=== PATIENT | female | born 1935 | race Caucasian/White ===

== ENCOUNTER → 2017-01-30 | Outpatient (REF) | payer MEDICARE ==
[~2017-01-30] MED LIST: CARV12.5 OR; KEFL500C PO; LASI40TA OR; VIT D 2000 PO; WARFPOW3 PO
[2017-01-30 17:59] LABS: ALBUMIN 3.6 GM/DL (3.2-5.2); ALKALINE PHOSPHATASE 118 U/L (45-117); ALT/SGPT 13 U/L (12-78); ANION GAP 7 MEQ/L (8-16); AST/SGOT 17 U/L (15-37); BILIRUBIN,TOTAL 0.6 MG/DL (0.2-1.0); BLOOD UREA NITROGEN 14 MG/DL (7-18); CALCIUM LEVEL 9.1 MG/DL (8.8-10.2); CARBON DIOXIDE LEVEL 32 MEQ/L (21-32); CHLORIDE LEVEL 101 MEQ/L (98-107); CHOLESTEROL LEVEL 195 MG/DL (<200); CREATININE FOR GFR 0.92 MG/DL (0.55-1.02); GLOMERULAR FILTRATION RATE > 60.0 (>39); GLUCOSE, FASTING 96 MG/DL (83-110); SODIUM LEVEL 140 MEQ/L (136-145); TOTAL PROTEIN 7.6 GM/DL (6.4-8.2); TRIGLYCERIDES LEVEL 81 MG/DL (<150)
[2017-01-30 18:38] LABS: MEAN CORPUSCULAR HEMOGLOBIN 29.7 pg (27.0-33.0); MEAN CORPUSCULAR HGB CONC 33.7 g/dl (32.0-36.5); MEAN CORPUSCULAR VOLUME 87.9 fl (80.0-96.0); RED CELL DISTRIBUTION WIDTH 12.8 % (11.5-14.5); WHITE BLOOD COUNT 5.5 K/mm3 (4.0-10.0)
== END ==
LOC: M SFHCPLAZ 15:54
PROVIDERS: ATTEND Nurse Practitioner Family
DX: I10 Essential (primary) hypertension (principal); E88.81 Metabolic syndrome and other insulin resistance; E78.2 Mixed hyperlipidemia; Z79.02 Long term (current) use of antithrombotics/antiplatelets; Z79.899 Other long term (current) drug therapy

== ENCOUNTER → 2017-04-30 | Day surgery (SDC) | payer MEDICARE ==
[~2017-04-30] VITALS: Ht 160 cm; Wt 125.2 kg
[~2017-04-30] MED LIST changes: +ACETYLCHOLINE OPHTH SOLN 1% 2ML (MIOCHOL-E) As Ordered ONE; +BISO10TA6 PO; +BSS with VANC/TOB/EPI for EYE CASES IR ONE; +CARV12.5 PO; +CEFUROXIME 1MG/0.1ML INTRACAMERAL INJ As Ordered ONE; +CYCLOPENTOLATE 2% OPHTH SOLN 2ML BTL OS ONE; +DOK100TA PO; +FURO40TA2 PO; +HEALON DUET (HEALON 10MG/ML 0.55ML & HEALON ENDOCOAT 30MG/ML 0.85ML) As Ordered ONE; +LIDOCAINE 1% SDV 5 ML VIAL As Ordered ONE; +LIDOCAINE 4% INJ 5 ML AMP OU ONE; +LR 500 ML IV ONE; +MIDAZOLAM INJ 2 MG/2 ML VIAL (J2250) As Ordered ONE; +MOXIFLOXACIN IN BSS 0.25MG/0.25ML INTRACAMERAL INJ (OR EYE ONLY)(J2280) As Ordered ONE; +MULT1CHW39 PO; +OFLOXACIN 0.3 % (OCUFLOX) OPTH SOL 5ML OS ONE; +PHENYLEPHRINE 2.5% OPHTH SOL 2ML OS ONE; +POVIDONE-IODINE 5% OPHTH PREP SOL 30ML As Ordered ONE; +TRIAMCINOLONE PRES FR 40 MG/ML 1ML(TRIESENCE)(OR EYE ONLY)(J3300 PER 1MG) As Ordered ONE; +TROPICAMIDE 1% OPHTH SOLN 2ML OS ONE; +XARE20TA PO; +fentaNYL 100 MCG/2 ML INJECTION (J3010) As Ordered ONE
[2017-04-30 12:50] VITALS: BP 188/90
--- NOTE | 2017-04-30 13:27 | RO ---
DATE OF PROCEDURE: 04/30/2017 PREPROCEDURE DIAGNOSIS: Dense 3-4+ cataract left eye. POSTPROCEDURE DIAGNOSIS: Dense 3-4+ cataract left eye. PROCEDURE: Phacoemulsification with intraocular lens implantation of [id number] plus 22 diopter. 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 DESCRIPTION OF PROCEDURE: The patient was brought to the operating room, very nervous. Patient could not horizontal. Eventually we had her in the Trendelenburg position. The left eye was prepped and draped. A lid speculum placed, Side port incision was made and EndoCoat was injected into the anterior chamber. Temporal clear corneal incision was made with a 2.5 mm Keratome followed by capsulorrhexis which was very difficult secondary to the dense nucleus. However, it was finished without any complications. Hydrodissection was done and then phacoemulsification was done under dense settings and the nucleus was divided. Half of the nucleus was phacoemulsified when the patient suddenly moved and a rent was noted in the posterior capsule. It was difficult to recover the remaining quadrant which drifted into the posterior pole. At that point, [id number] power 22 diopter was placed in the sulcus without any problems. Miochol was injected and a suture was applied. Case was discussed in great detail with the patient that she needs a retina specialists involvement to retrieve the remaining fibers of the lens. At the end of the case, sub-tenon Kenalog was given and cefuroxime was given intracamerally. Case was discussed in great detail with the patient.
== END | disposition home or self-care (01) ==
LOC: M SDC 10:54
PROVIDERS: ATTEND Ophthalmology
DX: H26.9 Unspecified cataract (principal); H59.022 Cataract (lens) fragments in eye following cataract surgery, left eye; I10 Essential (primary) hypertension; R60.0 Localized edema; R29.898 Other symptoms and signs involving the musculoskeletal system; M12.9 Arthropathy, unspecified; R06.09 Other forms of dyspnea; D68.62 Lupus anticoagulant syndrome; D66 Hereditary factor VIII deficiency; Z88.0 Allergy status to penicillin; Z79.899 Other long term (current) drug therapy; Z78.0 Asymptomatic menopausal state; Z86.711 Personal history of pulmonary embolism
CPT/HCPCS: 66984; J2250; J2280; J3010; J3300; V2632

== ENCOUNTER → 2017-05-13 | Outpatient (REF) | payer MEDICARE ==
[~2017-05-13] MED LIST changes: -ACETYLCHOLINE OPHTH SOLN 1% 2ML (MIOCHOL-E) As Ordered ONE; -BSS with VANC/TOB/EPI for EYE CASES IR ONE; -CEFUROXIME 1MG/0.1ML INTRACAMERAL INJ As Ordered ONE; -CYCLOPENTOLATE 2% OPHTH SOLN 2ML BTL OS ONE; -HEALON DUET (HEALON 10MG/ML 0.55ML & HEALON ENDOCOAT 30MG/ML 0.85ML) As Ordered ONE; -LIDOCAINE 1% SDV 5 ML VIAL As Ordered ONE; -LIDOCAINE 4% INJ 5 ML AMP OU ONE; -LR 500 ML IV ONE; -MIDAZOLAM INJ 2 MG/2 ML VIAL (J2250) As Ordered ONE; -MOXIFLOXACIN IN BSS 0.25MG/0.25ML INTRACAMERAL INJ (OR EYE ONLY)(J2280) As Ordered ONE; -OFLOXACIN 0.3 % (OCUFLOX) OPTH SOL 5ML OS ONE; -PHENYLEPHRINE 2.5% OPHTH SOL 2ML OS ONE; -POVIDONE-IODINE 5% OPHTH PREP SOL 30ML As Ordered ONE; -TRIAMCINOLONE PRES FR 40 MG/ML 1ML(TRIESENCE)(OR EYE ONLY)(J3300 PER 1MG) As Ordered ONE; -TROPICAMIDE 1% OPHTH SOLN 2ML OS ONE; -fentaNYL 100 MCG/2 ML INJECTION (J3010) As Ordered ONE
[2017-05-13 15:33] LABS: CALCIUM LEVEL 9.4 MG/DL (8.8-10.2); CREATININE FOR GFR 1.21 MG/DL (0.55-1.02); GLOMERULAR FILTRATION RATE 45.7 (>39); POTASSIUM SERUM 3.9 MEQ/L (3.5-5.1)
== END ==
LOC: M SFHCPLAZ 12:21
PROVIDERS: ATTEND Family Medicine
DX: Z01.818 Encounter for other preprocedural examination (principal); H59.022 Cataract (lens) fragments in eye following cataract surgery, left eye; I10 Essential (primary) hypertension

== ENCOUNTER → 2017-05-19 | Outpatient (REF) | payer MEDICARE ==
[2017-05-19 18:04] LABS: CALCIUM LEVEL 9.3 MG/DL (8.8-10.2); CREATININE FOR GFR 0.98 MG/DL (0.55-1.02); GLOMERULAR FILTRATION RATE 58.3 (>39); POTASSIUM SERUM 3.6 MEQ/L (3.5-5.1)
[2017-05-19 18:11] LABS: FOLLICLE STIMULATING HORMONE 55.4 mIU/mL; LUTEINIZING HORMONE 19.4 mIU/mL
[2017-05-19 18:13] LABS: INR 1.07
[2017-05-19 19:53] LABS: MEAN CORPUSCULAR HEMOGLOBIN 29.1 pg (27.0-33.0); MEAN CORPUSCULAR HGB CONC 33.4 g/dl (32.0-36.5); MEAN CORPUSCULAR VOLUME 87.1 fl (80.0-96.0); RED CELL DISTRIBUTION WIDTH 14.1 % (11.5-14.5); WHITE BLOOD COUNT 5.4 K/mm3 (4.0-10.0)
== END ==
LOC: M SFHCPLAZ 13:51
PROVIDERS: ATTEND Physician Assistant
DX: N93.9 Abnormal uterine and vaginal bleeding, unspecified (principal); Z51.81 Encounter for therapeutic drug level monitoring; Z79.01 Long term (current) use of anticoagulants; Z78.0 Asymptomatic menopausal state
CPT/HCPCS: 80048; 83001; 83002; 85027; 85610; 85730; G0463

== ENCOUNTER 2017-08-20 07:58 | Day surgery (SDC) | payer MEDICARE ==
[~2017-08-20] VITALS: Ht 162.6 cm; Wt 112.4 kg
[~2017-08-20 07:58] MED LIST changes: +ACETAMINOPHEN 325 MG TAB PO PRN; +BSS with VANC/TOB/EPI for EYE CASES IR ONE; +CYCLOPENTOLATE 2% OPHTH SOLN 2ML BTL OD ONE; +LIDOCAINE 3.5 % 1ML OPHTH TOPICAL GEL OU ONE; +MIDAZOLAM INJ 2 MG/2 ML VIAL (J2250) As Ordered ONE; +OFLOXACIN 0.3 % (OCUFLOX) OPTH SOL 5ML OD ONE; +PHENYLEPHRINE 2.5% OPHTH SOL 2ML OD ONE; +PROPARACAINE 0.5% OPHTH SOL 15ML OD PRN; +TROPICAMIDE 1% OPHTH SOLN 2ML OD ONE; +fentaNYL 100 MCG/2 ML INJECTION (J3010) As Ordered ONE
[2017-08-20] MEDS ORDERED: CYCLOPENTOLATE 2% OPHTH SOLN 2ML BTL As Ordered ONE (08:07)
[2017-08-20] MEDS ORDERED: PHENYLEPHRINE 2.5% OPHTH SOL 2ML As Ordered ONE (08:07)
[2017-08-20] MEDS ORDERED: OFLOXACIN 0.3 % (OCUFLOX) OPTH SOL 5ML As Ordered ONE (08:07)
[2017-08-20] MEDS ORDERED: TROPICAMIDE 1% OPHTH SOLN 2ML As Ordered ONE (08:07)
[2017-08-20] MEDS ORDERED: D5W/0.2% SODIUM CHLORIDE 250 ML IV ONE (08:15)
[2017-08-20] MEDS ORDERED: POVIDONE-IODINE 5% OPHTH PREP SOL 30ML As Ordered ONE (08:40)
[2017-08-20] MEDS ORDERED: TRIAMCINOLONE PRES FR 40 MG/ML 1ML(TRIESENCE)(OR EYE ONLY)(J3300 PER 1MG) As Ordered ONE (08:40)
[2017-08-20] MEDS ORDERED: LIDOCAINE 1% SDV 5 ML VIAL As Ordered ONE (08:40)
[2017-08-20] MEDS ORDERED: HEALON DUET (HEALON 10MG/ML 0.55ML & HEALON ENDOCOAT 30MG/ML 0.85ML) As Ordered ONE (08:41)
[2017-08-20] MEDS ORDERED: MOXIFLOXACIN IN BSS 0.25MG/0.25ML INTRACAMERAL INJ (OR EYE ONLY)(J2280) As Ordered ONE (08:41)
[2017-08-20] MEDS ORDERED: METOPROLOL 5 MG/5 ML VIAL As Ordered ONE (08:59)
[2017-08-20] MEDS ORDERED: LABETALOL HCL 100 MG/20 ML VIAL As Ordered ONE (09:16)
[2017-08-20] MEDS ORDERED: LABETALOL HCL 100 MG/20 ML VIAL IV SCH (10:00)
[2017-08-20 10:15] VITALS: BP 152/80
[2017-08-20] MEDS ORDERED: TRIMETHOBENZAMIDE 300 MG CAP PO PRN (10:15)
[2017-08-20] MEDS ORDERED: AcetaZOLAMIDE 500 MG ER CAP PO ONE (10:15)
[2017-08-20] MEDS ORDERED: KETOROLAC 0.5% OPHTH SOLN OD ONE (10:15)
== END 2017-08-20 10:20 | disposition home or self-care (01) ==
LOC: M SDC 07:58
PROVIDERS: ATTEND Ophthalmology
DX: H25.9 Unspecified age-related cataract (principal); I10 Essential (primary) hypertension; D64.9 Anemia, unspecified; R01.1 Cardiac murmur, unspecified; Z88.0 Allergy status to penicillin; Z79.02 Long term (current) use of antithrombotics/antiplatelets; Z79.899 Other long term (current) drug therapy; F41.9 Anxiety disorder, unspecified
CPT/HCPCS: 66984; J2250; J2280; J3010; J3300; V2632

== ENCOUNTER → 2018-03-24 | Outpatient (REF) | payer OTHER ==
[2018-03-24 16:19] LABS: HEMATOCRIT 37.1 % (36.0-47.0); HEMOGLOBIN 11.8 g/dl (12.0-15.5); MEAN CORPUSCULAR HEMOGLOBIN 28.6 pg (27.0-33.0); MEAN CORPUSCULAR HGB CONC 31.8 g/dl (32.0-36.5); PLATELET COUNT, AUTOMATED 190 10^3/uL (150-450); RED BLOOD COUNT 4.12 10^6/uL (4.00-5.40); RED CELL DISTRIBUTION WIDTH 12.9 % (11.5-14.5)
== END ==
LOC: M SFHCPLAZ 14:13
DX: D64.9 Anemia, unspecified (principal)
CPT/HCPCS: 85027

== ENCOUNTER 2018-03-27 18:40 | Inpatient (IN) | payer OTHER ==
[2018-03-27 19:09] LABS: HEMOGLOBIN 11.9 g/dl (12.0-15.5); MEAN CORPUSCULAR HEMOGLOBIN 28.7 pg (27.0-33.0); MEAN CORPUSCULAR HGB CONC 32.2 g/dl (32.0-36.5); MEAN CORPUSCULAR VOLUME 89.2 fl (80.0-96.0); PLATELET COUNT, AUTOMATED 182 10^3/uL (150-450); RED BLOOD COUNT 4.15 10^6/uL (4.00-5.40); WHITE BLOOD COUNT 5.6 10^3/uL (4.0-10.0)
[2018-03-27 19:19] LABS: INR 1.24; PROTHROMBIN TIME 15.8 SECONDS (12.4-14.5)
[2018-03-27 19:45] LABS: ALBUMIN 3.7 GM/DL (3.2-5.2); ALKALINE PHOSPHATASE 137 U/L (45-117); ALT/SGPT 14 U/L (12-78); ANION GAP 6 MEQ/L (8-16); AST/SGOT 16 U/L (7-37); BILIRUBIN,TOTAL 0.5 MG/DL (0.2-1.0); BLOOD UREA NITROGEN 12 MG/DL (7-18); CALCIUM LEVEL 8.9 MG/DL (8.8-10.2); CARBON DIOXIDE LEVEL 33 MEQ/L (21-32); CHLORIDE LEVEL 102 MEQ/L (98-107); CHOLESTEROL LEVEL 232 MG/DL (< 200); CPK CREATINE PHOSPHOKINASE 44 U/L (26-192); CREATININE FOR GFR 1.07 MG/DL (0.55-1.30); GLOMERULAR FILTRATION RATE 52.5 (>32); GLUCOSE, FASTING 139 MG/DL (70-100); LDH LACTATE DEHYDROGENASE 202 U/L (84-246); PHOSPHORUS LEVEL 3.1 MG/DL (2.5-4.9); SODIUM LEVEL 141 MEQ/L (136-145); TOTAL PROTEIN 7.8 GM/DL (6.4-8.2); TRIGLYCERIDES LEVEL 118 MG/DL (<150)
[2018-03-27] MEDS: FUROSEMIDE 40 MG TAB PO (20:23)
[2018-03-28] MEDS: FUROSEMIDE 40 MG TAB PO (08:36)
[2018-03-28] MEDS: BISOPROLOL FUMARATE 10 MG TAB PO (08:38)
[2018-03-28] MEDS: ENOXAPARIN 80 MG/0.8 ML SYRINGE (J1650) SC ×2 (08:39→21:14)
[2018-03-28] MEDS: VITAMIN D 1,000 INTERNATIONAL UNITS TABLET PO (08:39)
[2018-03-28] MEDS: FUROSEMIDE 80 MG TAB PO (16:13)
[2018-03-29] MEDS: VITAMIN D 1,000 INTERNATIONAL UNITS TABLET PO (09:00)
[2018-03-29] MEDS: ENOXAPARIN 80 MG/0.8 ML SYRINGE (J1650) SC ×2 (09:48→20:19)
[2018-03-29] MEDS: FUROSEMIDE 80 MG TAB PO ×2 (09:48→16:30)
[2018-03-29] MEDS: BISOPROLOL FUMARATE 10 MG TAB PO (09:48)
[2018-03-30 06:21] LABS: HEMATOCRIT 33.1 % (36.0-47.0); HEMOGLOBIN 10.8 g/dl (12.0-15.5); MEAN CORPUSCULAR HEMOGLOBIN 28.8 pg (27.0-33.0); MEAN CORPUSCULAR HGB CONC 32.6 g/dl (32.0-36.5); MEAN CORPUSCULAR VOLUME 88.3 fl (80.0-96.0); PLATELET COUNT, AUTOMATED 140 10^3/uL (150-450); RED BLOOD COUNT 3.75 10^6/uL (4.00-5.40); WHITE BLOOD COUNT 3.9 10^3/uL (4.0-10.0)
[2018-03-30 06:40] LABS: ANION GAP 3 MEQ/L (8-16); BLOOD UREA NITROGEN 12 MG/DL (7-18); CARBON DIOXIDE LEVEL 36 MEQ/L (21-32); CHLORIDE LEVEL 103 MEQ/L (98-107); CREATININE FOR GFR 0.91 MG/DL (0.55-1.30); GLOMERULAR FILTRATION RATE > 60.0 (>32); GLUCOSE, FASTING 89 MG/DL (70-100); POTASSIUM SERUM 3.5 MEQ/L (3.5-5.1); SODIUM LEVEL 142 MEQ/L (136-145)
[2018-03-30] MEDS: BISOPROLOL FUMARATE 10 MG TAB PO (08:16)
[2018-03-30] MEDS: ENOXAPARIN 80 MG/0.8 ML SYRINGE (J1650) SC ×2 (08:17→21:29)
[2018-03-30] MEDS: FUROSEMIDE 80 MG TAB PO ×2 (08:17→16:39)
[2018-03-30] MEDS: VITAMIN D 1,000 INTERNATIONAL UNITS TABLET PO (08:18)
[2018-03-31 06:33] LABS: HEMATOCRIT 34.3 % (36.0-47.0); HEMOGLOBIN 11.5 g/dl (12.0-15.5); MEAN CORPUSCULAR HEMOGLOBIN 29.4 pg (27.0-33.0); MEAN CORPUSCULAR HGB CONC 33.5 g/dl (32.0-36.5); MEAN CORPUSCULAR VOLUME 87.7 fl (80.0-96.0); PLATELET COUNT, AUTOMATED 151 10^3/uL (150-450); RED BLOOD COUNT 3.91 10^6/uL (4.00-5.40); RED CELL DISTRIBUTION WIDTH 12.9 % (11.5-14.5); WHITE BLOOD COUNT 4.6 10^3/uL (4.0-10.0)
[2018-03-31] MEDS: FUROSEMIDE 80 MG TAB PO ×2 (08:48→17:00)
[2018-03-31] MEDS: VITAMIN D 1,000 INTERNATIONAL UNITS TABLET PO (08:48)
[2018-03-31] MEDS: BISOPROLOL FUMARATE 10 MG TAB PO (08:49)
[2018-03-31] MEDS ORDERED: ROCURONIUM BROMIDE 50 MG/5 ML VIAL As Ordered (13:18)
[2018-03-31] MEDS ORDERED: LIDOCAINE 2% INJ 100 MG/5 ML SDV (FOR ANES.) As Ordered (13:18)
[2018-03-31] MEDS ORDERED: MIDAZOLAM INJ 2 MG/2 ML VIAL (J2250) As Ordered (13:19)
[2018-03-31] MEDS ORDERED: ONDANSETRON 4MG/2ML VIAL (J2405) As Ordered (13:19)
[2018-03-31] MEDS ORDERED: dexameTHASONE 4 MG/ML 1ML VIAL (J1100) As Ordered (13:19)
[2018-03-31] MEDS ORDERED: PROPOFOL 200 MG/20 ML VIAL As Ordered (13:19)
[2018-03-31] MEDS ORDERED: fentaNYL 250 MCG/5 ML INJECTION (J3010) As Ordered (13:19)
[2018-03-31] MEDS ORDERED: ePHEDrine SULFATE 25 MG/5 ML(5MG/ML) SYRINGE As Ordered (15:36)
[2018-03-31] MEDS ORDERED: PHENYLephrine HCL 500 MCG/5 ML (100MCG/ML) SYRINGE (J2370) As Ordered (15:36)
[2018-03-31] MEDS ORDERED: HYDROmorphone HCL 2 MG/ML 1ML VIAL (J1170) As Ordered (15:39)
[2018-03-31] MEDS: BUPIVACAINE HCL 0.25% 30 ML VIAL As Ordered (16:47)
[2018-03-31] MEDS: LR 1,000 ML IV (17:30)
[2018-03-31] MEDS ORDERED: MEPERIDINE INJ 25 MG/ML VIAL (J2175) IV (17:30)
[2018-03-31] MEDS ORDERED: fentaNYL 100 MCG/2 ML INJECTION (J3010) IV (17:30)
[2018-03-31] MEDS ORDERED: PERCOCET 5MG/325MG TAB PO (17:30)
[2018-03-31] MEDS ORDERED: METOCLOPRAMIDE INJ 10MG/2ML VIAL (J2765) IV (17:30)
[2018-03-31] MEDS ORDERED: ONDANSETRON 4MG/2ML VIAL (J2405) IV (17:30)
[2018-03-31] MEDS: ACETAMINOPHEN TAB 650MG DOSE (2X325MG) PO (21:58)
[2018-04-01] MEDS: ENOXAPARIN 80 MG/0.8 ML SYRINGE (J1650) SC (05:25)
[2018-04-01] MEDS: BISOPROLOL FUMARATE 10 MG TAB PO (08:18)
[2018-04-01] MEDS: FUROSEMIDE 80 MG TAB PO (08:18)
[2018-04-01] MEDS: VITAMIN D 1,000 INTERNATIONAL UNITS TABLET PO (08:18)
[2018-04-01] MEDS ORDERED: RIVAROXABAN 20 MG TAB (XARELTO) PO (18:00)
== END 2018-04-01 15:04 | disposition home or self-care (01) | DRG 418 ==
LOC: M MSPAV 18:40
PROC: 0FT44ZZ Resection of Gallbladder, Percutaneous Endoscopic Approach (ICD-10-PCS; principal; 2018-03-31 14:45)
DX: K80.71 Calculus of gallbladder and bile duct without cholecystitis with obstruction (principal); Z68.43 Body mass index [BMI] 50.0-59.9, adult; D68.2 Hereditary deficiency of other clotting factors; E66.01 Morbid (severe) obesity due to excess calories; I48.2 Chronic atrial fibrillation; Z79.899 Other long term (current) drug therapy; I11.9 Hypertensive heart disease without heart failure; Z86.711 Personal history of pulmonary embolism; Z86.718 Personal history of other venous thrombosis and embolism; E03.9 Hypothyroidism, unspecified; E78.5 Hyperlipidemia, unspecified; Z88.0 Allergy status to penicillin

== ENCOUNTER 2018-06-23 13:00 | Inpatient (IN) | payer OTHER, MEDICARE ==
[2018-06-23] MEDS: ONDANSETRON 4MG/2ML VIAL (J2405) IV (13:47)
[2018-06-23 13:59] LABS: BASO % 0.2 % (0.0-1.0); HEMATOCRIT 32.5 % (36.0-47.0); HEMOGLOBIN 10.7 g/dl (12.0-15.5); IMMATURE GRANULOCYTE % 0.5 % (0-3.0); LYMPH # 0.6 10^3/uL (1.5-4.5); LYMPH % 6.1 % (24.0-44.0); MEAN CORPUSCULAR HEMOGLOBIN 29.6 pg (27.0-33.0); MEAN CORPUSCULAR HGB CONC 32.9 g/dl (32.0-36.5); MEAN CORPUSCULAR VOLUME 89.8 fl (80.0-96.0); MONO # 1.1 10^3/uL (0.0-0.8); MONO % 11.9 % (0.0-5.0); NEUTROPHILS # 7.4 10^3/uL (1.8-7.7); NEUTROPHILS % 81.3 % (36.0-66.0); PLATELET COUNT, AUTOMATED 106 10^3/uL (150-450); RED BLOOD COUNT 3.62 10^6/uL (4.00-5.40); RED CELL DISTRIBUTION WIDTH 12.4 % (11.5-14.5); WHITE BLOOD COUNT 9.1 10^3/uL (4.0-10.0)
[2018-06-23 14:09] LABS: INR 1.76; PROTHROMBIN TIME 20.8 SECONDS (12.1-14.4)
[2018-06-23 14:14] LABS: ALBUMIN 2.9 GM/DL (3.2-5.2); ALBUMIN/GLOBULIN RATIO 0.64 (1.00-1.93); ALKALINE PHOSPHATASE 168 U/L (45-117); ALT/SGPT 19 U/L (12-78); AMYLASE 9 U/L (25-115); ANION GAP 11 MEQ/L (8-16); AST/SGOT 25 U/L (7-37); BILIRUBIN,DIRECT 0.6 MG/DL (0.0-0.2); BILIRUBIN,TOTAL 1.4 MG/DL (0.2-1.0); BLOOD UREA NITROGEN 29 MG/DL (7-18); CARBON DIOXIDE LEVEL 30 MEQ/L (21-32); CHLORIDE LEVEL 97 MEQ/L (98-107); CK-MB VALUE MASS < 1.0 NG/ML (<3.6); CPK CREATINE PHOSPHOKINASE 66 U/L (26-192); CREATININE FOR GFR 1.58 MG/DL (0.55-1.30); GLOMERULAR FILTRATION RATE 33.5 (>32); GLUCOSE, FASTING 126 MG/DL (70-100); LIPASE 52 U/L (73-393); MB/CK RELATIVE INDEX 1.51 (< OR =4); SODIUM LEVEL 138 MEQ/L (136-145); TOTAL PROTEIN 7.4 GM/DL (6.4-8.2); TROPONIN I 0.04 NG/ML (< 0.10)
[2018-06-23 14:23] LABS: POTASSIUM SERUM 2.8 MEQ/L (3.5-5.1)
[2018-06-23] MEDS ORDERED: ISOVUE-370 76% 100ML VIAL (Q9967) As Ordered (14:25)
[2018-06-23] MEDS: KCL 10MEQ/100ML SWI (KRUN) 10 MEQ in APPROPRIATE DILUENT 1 EA IV ×2 (14:45→17:27)
[2018-06-23] MEDS: NS 500 ML IV (14:45)
[2018-06-23 14:56] LABS: MUCUS, URINE RFX SMALL (NEGATIVE); RBC, URINE AUTO RFX 0 /HPF (0-3); SQUAM EPITHELIAL CELL UR AURFX 14 /HPF (0-6)
[2018-06-23 15:08] LABS: KETONE, URINE AUTO RFX NEGATIVE (NEGATIVE); SPECIFIC GRAVITY UR AUTO RFX 1.012 (1.002-1.035); WBC, URINE AUTO RFX TNTC /HPF (0-3)
[2018-06-23 15:09] LABS: LEUKOCYTE ESTERASE UR AUTO RFX 3+ (NEGATIVE); NITRITE, URINE AUTO RFX NEGATIVE (NEGATIVE)
[2018-06-23 15:09] LABS: LACTIC ACID SEPSIS PROTOCOL 2.7 MMOL/L (0.4-2.0)
[2018-06-23] MEDS: ACETAMINOPHEN TAB 650MG DOSE (2X325MG) PO (16:39)
[2018-06-23] MEDS: METOCLOPRAMIDE INJ 10MG/2ML VIAL (J2765) IV (16:40)
[2018-06-23] MEDS: cefTRIAXone SOD 1 GM in D5W MINI-BAG PLUS 50 ML IV (16:52)
[2018-06-23] MEDS: NS 1,000 ML IV ×2 (17:49→23:04)
[2018-06-23] MEDS ORDERED: ONDANSETRON 4MG/2ML VIAL (J2405) IV (18:00)
[2018-06-23] MEDS ORDERED: ONDANSETRON 4 MG TAB (S0181) PO (18:00)
[2018-06-23 19:53] LABS: CK-MB VALUE MASS < 1.0 NG/ML (<3.6); CPK CREATINE PHOSPHOKINASE 50 U/L (26-192); TROPONIN I 0.05 NG/ML (< 0.10)
[2018-06-23] MEDS: RIVAROXABAN 20 MG TAB (XARELTO) PO (21:38)
[2018-06-23] MEDS: METOPROLOL TART 25 MG TABLET PO ×2 (21:38→22:00)
[2018-06-23] MEDS: POTASSIUM CHLORIDE 10 MEQ SR TABLET PO (23:04)
[2018-06-24] MEDS ORDERED: KCL 20MEQ IN 100ML SWI (KRUN) 20 MEQ in APPROPRIATE DILUENT 1 EA IV
[2018-06-24 01:43] LABS: CK-MB VALUE MASS < 1.0 NG/ML (<3.6); CPK CREATINE PHOSPHOKINASE 79 U/L (26-192); MB/CK RELATIVE INDEX 1.26 (< OR =4); TROPONIN I 0.03 NG/ML (< 0.10)
[2018-06-24 01:43] LABS: LACTIC ACID SEPSIS PROTOCOL 1.9 MMOL/L (0.4-2.0)
[2018-06-24] MEDS: KCL 10MEQ/100ML SWI (KRUN) 10 MEQ in APPROPRIATE DILUENT 1 EA IV ×4 (01:43→06:00)
[2018-06-24 05:49] LABS: BASO % 0.3 % (0.0-1.0); HEMATOCRIT 32.9 % (36.0-47.0); HEMOGLOBIN 10.9 g/dl (12.0-15.5); IMMATURE GRANULOCYTE % 0.5 % (0-3.0); LYMPH # 0.6 10^3/uL (1.5-4.5); LYMPH % 6.2 % (24.0-44.0); MEAN CORPUSCULAR HEMOGLOBIN 29.6 pg (27.0-33.0); MEAN CORPUSCULAR HGB CONC 33.1 g/dl (32.0-36.5); MEAN CORPUSCULAR VOLUME 89.4 fl (80.0-96.0); MONO # 1.1 10^3/uL (0.0-0.8); MONO % 11.1 % (0.0-5.0); NEUTROPHILS # 8.1 10^3/uL (1.8-7.7); NEUTROPHILS % 81.9 % (36.0-66.0); RED BLOOD COUNT 3.68 10^6/uL (4.00-5.40); RED CELL DISTRIBUTION WIDTH 12.5 % (11.5-14.5); WHITE BLOOD COUNT 9.9 10^3/uL (4.0-10.0)
[2018-06-24 05:52] LABS: PLATELET COUNT, AUTOMATED 94 10^3/uL (150-450)
[2018-06-24 05:53] LABS: IMMATURE PLATELET FRACTION % 12.3 % (0.0-9.6)
[2018-06-24 06:13] LABS: ALBUMIN 2.4 GM/DL (3.2-5.2); ALBUMIN/GLOBULIN RATIO 0.56 (1.00-1.93); ALKALINE PHOSPHATASE 171 U/L (45-117); ALT/SGPT 19 U/L (12-78); ANION GAP 8 MEQ/L (8-16); AST/SGOT 29 U/L (7-37); BLOOD UREA NITROGEN 30 MG/DL (7-18); CALCIUM LEVEL 8.9 MG/DL (8.8-10.2); CARBON DIOXIDE LEVEL 28 MEQ/L (21-32); CHLORIDE LEVEL 101 MEQ/L (98-107); CPK CREATINE PHOSPHOKINASE 54 U/L (26-192); CREATININE FOR GFR 1.49 MG/DL (0.55-1.30); GLOMERULAR FILTRATION RATE 35.8 (>32); GLUCOSE, FASTING 110 MG/DL (70-100); POTASSIUM SERUM 3.6 MEQ/L (3.5-5.1); SODIUM LEVEL 137 MEQ/L (136-145); TOTAL PROTEIN 6.7 GM/DL (6.4-8.2); TROPONIN I 0.02 NG/ML (< 0.10)
[2018-06-24 06:21] LABS: CK-MB VALUE MASS < 1.0 NG/ML (<3.6); MB/CK RELATIVE INDEX 1.85 (< OR =4)
[2018-06-24] MEDS: ACETAMINOPHEN TAB 650MG DOSE (2X325MG) PO (07:25)
[2018-06-24] MEDS: BISOPROLOL FUMARATE 10 MG TAB PO (09:54)
[2018-06-24] MEDS: VITAMIN D 1,000 INTERNATIONAL UNITS TABLET PO (09:54)
[2018-06-24] MEDS: RIVAROXABAN 20 MG TAB (XARELTO) PO (17:33)
[2018-06-24] MEDS: cefTRIAXone SOD 1 GM in D5W MINI-BAG PLUS 50 ML IV (17:36)
[2018-06-25] MEDS: ACETAMINOPHEN TAB 650MG DOSE (2X325MG) PO (00:33)
[2018-06-25 08:05] LABS: BASO % 0.2 % (0.0-1.0); EOS # 0.1 10^3/uL (0.0-0.50); EOS % 1.4 % (0.0-3.0); HEMATOCRIT 30.8 % (36.0-47.0); IMMATURE GRANULOCYTE % 0.9 % (0-3.0); LYMPH # 0.9 10^3/uL (1.5-4.5); LYMPH % 9.9 % (24.0-44.0); MEAN CORPUSCULAR HEMOGLOBIN 29.4 pg (27.0-33.0); MEAN CORPUSCULAR HGB CONC 32.5 g/dl (32.0-36.5); MEAN CORPUSCULAR VOLUME 90.6 fl (80.0-96.0); MONO # 1.1 10^3/uL (0.0-0.8); MONO % 12.2 % (0.0-5.0); NEUTROPHILS # 6.8 10^3/uL (1.8-7.7); NEUTROPHILS % 75.4 % (36.0-66.0); PLATELET COUNT, AUTOMATED 111 10^3/uL (150-450); RED CELL DISTRIBUTION WIDTH 12.8 % (11.5-14.5); WHITE BLOOD COUNT 9.1 10^3/uL (4.0-10.0)
[2018-06-25 08:29] LABS: ALBUMIN 2.2 GM/DL (3.2-5.2); ALBUMIN/GLOBULIN RATIO 0.48 (1.00-1.93); ALKALINE PHOSPHATASE 189 U/L (45-117); ALT/SGPT 17 U/L (12-78); ANION GAP 9 MEQ/L (8-16); AST/SGOT 23 U/L (7-37); BILIRUBIN,TOTAL 0.6 MG/DL (0.2-1.0); BLOOD UREA NITROGEN 32 MG/DL (7-18); CALCIUM LEVEL 9.1 MG/DL (8.8-10.2); CARBON DIOXIDE LEVEL 27 MEQ/L (21-32); CHLORIDE LEVEL 102 MEQ/L (98-107); CREATININE FOR GFR 1.43 MG/DL (0.55-1.30); GLOMERULAR FILTRATION RATE 37.6 (>32); GLUCOSE, FASTING 101 MG/DL (70-100); MAGNESIUM LEVEL 2.2 MG/DL (1.8-2.4); POTASSIUM SERUM 3.3 MEQ/L (3.5-5.1); SODIUM LEVEL 138 MEQ/L (136-145); TOTAL PROTEIN 6.8 GM/DL (6.4-8.2)
[2018-06-25] MEDS: VITAMIN D 1,000 INTERNATIONAL UNITS TABLET PO (09:40)
[2018-06-25] MEDS: BISOPROLOL FUMARATE 10 MG TAB PO (09:42)
[2018-06-25] MEDS: RIVAROXABAN 20 MG TAB (XARELTO) PO (17:02)
[2018-06-25] MEDS: cefTRIAXone SOD 1 GM in D5W MINI-BAG PLUS 50 ML IV (17:02)
[2018-06-26 06:13] LABS: HEMATOCRIT 32.4 % (36.0-47.0); HEMOGLOBIN 10.4 g/dl (12.0-15.5); MEAN CORPUSCULAR HEMOGLOBIN 29.4 pg (27.0-33.0); MEAN CORPUSCULAR HGB CONC 32.1 g/dl (32.0-36.5); MEAN CORPUSCULAR VOLUME 91.5 fl (80.0-96.0); PLATELET COUNT, AUTOMATED 186 10^3/uL (150-450); RED BLOOD COUNT 3.54 10^6/uL (4.00-5.40); RED CELL DISTRIBUTION WIDTH 12.8 % (11.5-14.5); WHITE BLOOD COUNT 10.5 10^3/uL (4.0-10.0)
[2018-06-26 06:17] LABS: ADD MANUAL DIFFER YES; DIFF SLIDE NUMBER 31; POSITIVE MORPH POS FLAG
[2018-06-26 06:21] LABS: ALBUMIN 2.4 GM/DL (3.2-5.2); ALKALINE PHOSPHATASE 208 U/L (45-117); ALT/SGPT 18 U/L (12-78); ANION GAP 8 MEQ/L (8-16); AST/SGOT 21 U/L (7-37); BILIRUBIN,TOTAL 0.5 MG/DL (0.2-1.0); BLOOD UREA NITROGEN 30 MG/DL (7-18); CALCIUM LEVEL 9.3 MG/DL (8.8-10.2); CARBON DIOXIDE LEVEL 31 MEQ/L (21-32); CHLORIDE LEVEL 101 MEQ/L (98-107); CREATININE FOR GFR 1.28 MG/DL (0.55-1.30); GLOMERULAR FILTRATION RATE 42.7 (>32); GLUCOSE, FASTING 103 MG/DL (70-100); MAGNESIUM LEVEL 2.2 MG/DL (1.8-2.4); POTASSIUM SERUM 2.9 MEQ/L (3.5-5.1); SODIUM LEVEL 140 MEQ/L (136-145); TOTAL PROTEIN 7.2 GM/DL (6.4-8.2)
[2018-06-26 06:34] LABS: ATYPICAL LYMPH 4 % (0-5); EOSINOPHILS 3 % (0-5); LYMPHOCYTES 10 % (16-52); MONOCYTES 6 % (0-8); NEUTROPHILS 77 % (35-75); PLATELET ESTIMATE NORMAL (NORMAL)
[2018-06-26] MEDS: KCL 10MEQ/100ML SWI (KRUN) 10 MEQ in APPROPRIATE DILUENT 1 EA IV ×2 (06:41→08:41)
[2018-06-26] MEDS: BISOPROLOL FUMARATE 10 MG TAB PO (08:42)
[2018-06-26] MEDS: VITAMIN D 1,000 INTERNATIONAL UNITS TABLET PO (08:42)
[2018-06-26] MEDS ORDERED: POTASSIUM CHLORIDE 10 MEQ SR TABLET PO (09:00)
[2018-06-26] MEDS ORDERED: POTASSIUM CHLORIDE 10% LIQ 20 MEQ/15 ML UDC PO (09:00)
[2018-06-26] MEDS: POTASSIUM CHLORIDE 10 MEQ SR TABLET PO (10:36)
[2018-06-26] MEDS: cefTRIAXone SOD 1 GM in D5W MINI-BAG PLUS 50 ML IV (18:05)
[2018-06-26] MEDS: RIVAROXABAN 20 MG TAB (XARELTO) PO (18:05)
[2018-06-26 18:09] LABS: ANION GAP 7 MEQ/L (8-16); BLOOD UREA NITROGEN 28 MG/DL (7-18); CALCIUM LEVEL 9.1 MG/DL (8.8-10.2); CARBON DIOXIDE LEVEL 31 MEQ/L (21-32); CHLORIDE LEVEL 102 MEQ/L (98-107); CREATININE FOR GFR 1.17 MG/DL (0.55-1.30); GLOMERULAR FILTRATION RATE 47.4 (>32); GLUCOSE, FASTING 106 MG/DL (70-100); POTASSIUM SERUM 3.5 MEQ/L (3.5-5.1); SODIUM LEVEL 140 MEQ/L (136-145)
[2018-06-26] MEDS: IPRATROPIUM 0.5MG/ALBUTEROL 2.5MG INH SOL UD 3ML (DUONEB)(J7620) NEB (18:12)
[2018-06-27 05:35] LABS: HEMATOCRIT 29.1 % (36.0-47.0); HEMOGLOBIN 9.3 g/dl (12.0-15.5); MEAN CORPUSCULAR HEMOGLOBIN 29.1 pg (27.0-33.0); MEAN CORPUSCULAR VOLUME 90.9 fl (80.0-96.0); PLATELET COUNT, AUTOMATED 188 10^3/uL (150-450); RED CELL DISTRIBUTION WIDTH 12.7 % (11.5-14.5); WHITE BLOOD COUNT 6.7 10^3/uL (4.0-10.0)
[2018-06-27 05:38] LABS: ADD MANUAL DIFFER YES; DIFF SLIDE NUMBER 19; POSITIVE MORPH POS FLAG
[2018-06-27 05:59] LABS: ALBUMIN 2.1 GM/DL (3.2-5.2); ALKALINE PHOSPHATASE 166 U/L (45-117); ALT/SGPT 12 U/L (12-78); ANION GAP 7 MEQ/L (8-16); AST/SGOT 15 U/L (7-37); BILIRUBIN,TOTAL 0.3 MG/DL (0.2-1.0); BLOOD UREA NITROGEN 23 MG/DL (7-18); CARBON DIOXIDE LEVEL 31 MEQ/L (21-32); CHLORIDE LEVEL 104 MEQ/L (98-107); CREATININE FOR GFR 1.03 MG/DL (0.55-1.30); GLOMERULAR FILTRATION RATE 54.9 (>32); GLUCOSE, FASTING 97 MG/DL (70-100); MAGNESIUM LEVEL 2.2 MG/DL (1.8-2.4); POTASSIUM SERUM 3.1 MEQ/L (3.5-5.1); SODIUM LEVEL 142 MEQ/L (136-145); TOTAL PROTEIN 6.3 GM/DL (6.4-8.2)
[2018-06-27 06:48] LABS: ATYPICAL LYMPH 4 % (0-5); EOSINOPHILS 1 % (0-5); LYMPHOCYTES 22 % (16-52); MONOCYTES 4 % (0-8); NEUTROPHILS 69 % (35-75); PLATELET ESTIMATE NORMAL (NORMAL)
[2018-06-27] MEDS: POTASSIUM CHLORIDE 10 MEQ SR TABLET PO ×2 (06:48→08:46)
[2018-06-27 06:49] LABS: ANISOCYTOSIS 1+; MICROCYTOSIS 1+
[2018-06-27] MEDS: BISOPROLOL FUMARATE 10 MG TAB PO (08:45)
[2018-06-27] MEDS: VITAMIN D 1,000 INTERNATIONAL UNITS TABLET PO (08:46)
[2018-06-27] MEDS: IPRATROPIUM 0.5MG/ALBUTEROL 2.5MG INH SOL UD 3ML (DUONEB)(J7620) NEB (08:54)
[2018-06-27] MEDS ORDERED: SLF 3 ML SYR IV (15:00)
[2018-06-27] MEDS: cefTRIAXone SOD 1 GM in D5W MINI-BAG PLUS 50 ML IV (17:03)
[2018-06-27] MEDS: RIVAROXABAN 20 MG TAB (XARELTO) PO (17:03)
[2018-06-27] MEDS: SLF 3 ML SYR IV (22:00)
[2018-06-28] MEDS: SLF 3 ML SYR IV ×3 (05:04→21:10)
[2018-06-28 05:45] LABS: HEMATOCRIT 30.2 % (36.0-47.0); HEMOGLOBIN 9.6 g/dl (12.0-15.5); MEAN CORPUSCULAR HGB CONC 31.8 g/dl (32.0-36.5); MEAN CORPUSCULAR VOLUME 91.2 fl (80.0-96.0); PLATELET COUNT, AUTOMATED 233 10^3/uL (150-450); RED BLOOD COUNT 3.31 10^6/uL (4.00-5.40); RED CELL DISTRIBUTION WIDTH 12.8 % (11.5-14.5); WHITE BLOOD COUNT 7.7 10^3/uL (4.0-10.0)
[2018-06-28 05:46] LABS: ADD MANUAL DIFFER YES; DIFF SLIDE NUMBER 11; POS COUNT POS FLAG; POSITIVE MORPH POS FLAG
[2018-06-28 06:02] LABS: ALBUMIN 2.2 GM/DL (3.2-5.2); ALBUMIN/GLOBULIN RATIO 0.47 (1.00-1.93); ALKALINE PHOSPHATASE 177 U/L (45-117); ALT/SGPT 13 U/L (12-78); ANION GAP 8 MEQ/L (8-16); AST/SGOT 18 U/L (7-37); BILIRUBIN,TOTAL 0.3 MG/DL (0.2-1.0); BLOOD UREA NITROGEN 17 MG/DL (7-18); CARBON DIOXIDE LEVEL 27 MEQ/L (21-32); CHLORIDE LEVEL 107 MEQ/L (98-107); GLOMERULAR FILTRATION RATE 56.8 (>32); GLUCOSE, FASTING 99 MG/DL (70-100); MAGNESIUM LEVEL 2.2 MG/DL (1.8-2.4); POTASSIUM SERUM 3.9 MEQ/L (3.5-5.1); SODIUM LEVEL 142 MEQ/L (136-145); TOTAL PROTEIN 6.9 GM/DL (6.4-8.2)
[2018-06-28 06:54] LABS: ATYPICAL LYMPH 7 % (0-5); EOSINOPHILS 1 % (0-5); LYMPHOCYTES 24 % (16-52); METAMYELOCYTES 3 % (0-0); MONOCYTES 5 % (0-8); MYELOCYTES 1 % (0-0); NEUTROPHILS 59 % (35-75); PLATELET ESTIMATE NORMAL (NORMAL)
[2018-06-28 06:55] LABS: ANISOCYTOSIS 1+; MICROCYTOSIS 1+; POIKILOCYTOSIS 1+; TOXIC GRANULATION 1+
[2018-06-28] MEDS: POTASSIUM CHLORIDE 10 MEQ SR TABLET PO (08:16)
[2018-06-28] MEDS: BISOPROLOL FUMARATE 10 MG TAB PO (08:16)
[2018-06-28] MEDS: VITAMIN D 1,000 INTERNATIONAL UNITS TABLET PO (08:16)
[2018-06-28] MEDS: FUROSEMIDE 40 MG TAB PO ×2 (11:58→17:23)
[2018-06-28] MEDS: EUCERIN 120GM CREAM TOP ×2 (11:59→21:09)
[2018-06-28] MEDS: RIVAROXABAN 20 MG TAB (XARELTO) PO (17:23)
[2018-06-28] MEDS: cefTRIAXone SOD 1 GM in D5W MINI-BAG PLUS 50 ML IV (17:24)
[2018-06-29] MEDS: SLF 3 ML SYR IV ×3 (06:07→21:39)
[2018-06-29 06:13] LABS: HEMATOCRIT 28.7 % (36.0-47.0); HEMOGLOBIN 9.3 g/dl (12.0-15.5); MEAN CORPUSCULAR HEMOGLOBIN 29.3 pg (27.0-33.0); MEAN CORPUSCULAR HGB CONC 32.4 g/dl (32.0-36.5); MEAN CORPUSCULAR VOLUME 90.5 fl (80.0-96.0); PLATELET COUNT, AUTOMATED 257 10^3/uL (150-450); RED BLOOD COUNT 3.17 10^6/uL (4.00-5.40); RED CELL DISTRIBUTION WIDTH 13.1 % (11.5-14.5); WHITE BLOOD COUNT 7.2 10^3/uL (4.0-10.0)
[2018-06-29 06:16] LABS: ADD MANUAL DIFFER YES; DIFF SLIDE NUMBER 17; POS COUNT POS FLAG; POSITIVE MORPH POS FLAG
[2018-06-29 06:34] LABS: ALBUMIN 2.1 GM/DL (3.2-5.2); ALBUMIN/GLOBULIN RATIO 0.51 (1.00-1.93); ALKALINE PHOSPHATASE 153 U/L (45-117); ALT/SGPT 12 U/L (12-78); ANION GAP 7 MEQ/L (8-16); AST/SGOT 15 U/L (7-37); BILIRUBIN,TOTAL 0.4 MG/DL (0.2-1.0); BLOOD UREA NITROGEN 14 MG/DL (7-18); CALCIUM LEVEL 8.6 MG/DL (8.8-10.2); CARBON DIOXIDE LEVEL 31 MEQ/L (21-32); CHLORIDE LEVEL 106 MEQ/L (98-107); CREATININE FOR GFR 0.98 MG/DL (0.55-1.30); GLOMERULAR FILTRATION RATE 58.1 (>32); GLUCOSE, FASTING 100 MG/DL (70-100); MAGNESIUM LEVEL 1.8 MG/DL (1.8-2.4); POTASSIUM SERUM 3.8 MEQ/L (3.5-5.1); SODIUM LEVEL 144 MEQ/L (136-145); TOTAL PROTEIN 6.2 GM/DL (6.4-8.2)
[2018-06-29 06:35] LABS: C REACTIVE PROTEIN QUANTITATIV 8.06 MG/DL (0.00-0.30)
[2018-06-29 06:58] LABS: ATYPICAL LYMPH 4 % (0-5); EOSINOPHILS 3 % (0-5); LYMPHOCYTES 16 % (16-52); METAMYELOCYTES 3 % (0-0); MONOCYTES 6 % (0-8); MYELOCYTES 1 % (0-0); NEUTROPHILS 67 % (35-75)
[2018-06-29 06:59] LABS: ANISOCYTOSIS 1+; PLATELET ESTIMATE NORMAL (NORMAL); TOXIC GRANULATION 1+
[2018-06-29] MEDS: POTASSIUM CHLORIDE 10 MEQ SR TABLET PO (07:55)
[2018-06-29] MEDS: VITAMIN D 1,000 INTERNATIONAL UNITS TABLET PO (07:55)
[2018-06-29] MEDS: FUROSEMIDE 40 MG TAB PO ×2 (07:57→17:07)
[2018-06-29] MEDS: BISOPROLOL FUMARATE 10 MG TAB PO (07:57)
[2018-06-29] MEDS: EUCERIN 120GM CREAM TOP ×2 (07:58→20:37)
[2018-06-29] MEDS: RIVAROXABAN 20 MG TAB (XARELTO) PO (17:07)
[2018-06-29] MEDS: CEFDINIR 300 MG CAP (OMNICEF) PO (20:36)
[2018-06-30] MEDS: SLF 3 ML SYR IV ×3 (05:26→22:00)
[2018-06-30 05:58] LABS: HEMATOCRIT 29.7 % (36.0-47.0); HEMOGLOBIN 9.5 g/dl (12.0-15.5); MEAN CORPUSCULAR HEMOGLOBIN 29.2 pg (27.0-33.0); MEAN CORPUSCULAR VOLUME 91.4 fl (80.0-96.0); PLATELET COUNT, AUTOMATED 283 10^3/uL (150-450); RED BLOOD COUNT 3.25 10^6/uL (4.00-5.40); RED CELL DISTRIBUTION WIDTH 13.2 % (11.5-14.5); WHITE BLOOD COUNT 7.5 10^3/uL (4.0-10.0)
[2018-06-30 06:04] LABS: ADD MANUAL DIFFER YES; DIFF SLIDE NUMBER 10; POS COUNT POS FLAG; POSITIVE MORPH POS FLAG
[2018-06-30 06:22] LABS: ALBUMIN 2.3 GM/DL (3.2-5.2); ALBUMIN/GLOBULIN RATIO 0.52 (1.00-1.93); ALKALINE PHOSPHATASE 150 U/L (45-117); ALT/SGPT 11 U/L (12-78); ANION GAP 6 MEQ/L (8-16); AST/SGOT 17 U/L (7-37); BILIRUBIN,TOTAL 0.3 MG/DL (0.2-1.0); BLOOD UREA NITROGEN 12 MG/DL (7-18); C REACTIVE PROTEIN QUANTITATIV 6.21 MG/DL (0.00-0.30); CALCIUM LEVEL 8.7 MG/DL (8.8-10.2); CARBON DIOXIDE LEVEL 33 MEQ/L (21-32); CHLORIDE LEVEL 102 MEQ/L (98-107); CREATININE FOR GFR 0.97 MG/DL (0.55-1.30); GLOMERULAR FILTRATION RATE 58.8 (>32); GLUCOSE, FASTING 95 MG/DL (70-100); MAGNESIUM LEVEL 1.8 MG/DL (1.8-2.4); SODIUM LEVEL 141 MEQ/L (136-145); TOTAL PROTEIN 6.7 GM/DL (6.4-8.2)
[2018-06-30 06:36] LABS: ATYPICAL LYMPH 1 % (0-5); BASOPHILS 1 % (0-4); EOSINOPHILS 2 % (0-5); LYMPHOCYTES 14 % (16-52); MONOCYTES 4 % (0-8); MYELOCYTES 2 % (0-0); NEUTROPHILS 76 % (35-75); PLATELET ESTIMATE NORMAL (NORMAL)
[2018-06-30 06:41] LABS: TOXIC GRANULATION 1+
[2018-06-30 06:42] LABS: ANISOCYTOSIS 1+
[2018-06-30] MEDS: BISOPROLOL FUMARATE 10 MG TAB PO (08:05)
[2018-06-30] MEDS: FUROSEMIDE 40 MG TAB PO ×2 (08:06→16:44)
[2018-06-30] MEDS: CEFDINIR 300 MG CAP (OMNICEF) PO ×2 (08:06→20:29)
[2018-06-30] MEDS: VITAMIN D 1,000 INTERNATIONAL UNITS TABLET PO (08:06)
[2018-06-30] MEDS: EUCERIN 120GM CREAM TOP ×2 (08:08→20:29)
[2018-06-30] MEDS: POTASSIUM CHLORIDE 10 MEQ SR TABLET PO (08:08)
[2018-06-30] MEDS: RIVAROXABAN 20 MG TAB (XARELTO) PO (16:44)
[2018-07-01] MEDS: CLOTRIMAZOLE 1% TOPICAL CREAM 30GM TOP ×2 (00:19→08:23)
[2018-07-01 06:11] LABS: C REACTIVE PROTEIN QUANTITATIV 4.87 MG/DL (0.00-0.30)
[2018-07-01] MEDS: FUROSEMIDE 40 MG TAB PO (08:22)
[2018-07-01] MEDS: BISOPROLOL FUMARATE 10 MG TAB PO (08:22)
[2018-07-01] MEDS: CEFDINIR 300 MG CAP (OMNICEF) PO (08:22)
[2018-07-01] MEDS: VITAMIN D 1,000 INTERNATIONAL UNITS TABLET PO (08:22)
[2018-07-01] MEDS: POTASSIUM CHLORIDE 10 MEQ SR TABLET PO (08:23)
[2018-07-01] MEDS: EUCERIN 120GM CREAM TOP (08:24)
== END 2018-07-01 15:00 | disposition home health service (06) | DRG 872 ==
LOC: M MSPAV 06-28 06:26 → M ED 13:00 → M ED INP 17:49 → M PCU 20:45
DX: A41.51 Sepsis due to Escherichia coli [E. coli] (principal); N17.9 Acute kidney failure, unspecified; N39.0 Urinary tract infection, site not specified; D68.2 Hereditary deficiency of other clotting factors; R65.20 Severe sepsis without septic shock; I27.20 Pulmonary hypertension, unspecified; I48.2 Chronic atrial fibrillation; E66.01 Morbid (severe) obesity due to excess calories; D64.9 Anemia, unspecified; Z86.711 Personal history of pulmonary embolism; Z79.899 Other long term (current) drug therapy; K57.30 Diverticulosis of large intestine without perforation or abscess without bleeding; I10 Essential (primary) hypertension; E78.5 Hyperlipidemia, unspecified; E03.9 Hypothyroidism, unspecified; E87.6 Hypokalemia; Z88.0 Allergy status to penicillin

== ENCOUNTER → 2018-07-09 | Outpatient (REF) | payer OTHER | LOC: M SHH 17:03 | DX: R30.0 Dysuria (principal) | CPT/HCPCS: 87086 ==

== ENCOUNTER → 2018-07-29 | Outpatient (CLI) | payer OTHER | LOC: M SMT 11:18 | DX: R06.02 Shortness of breath (principal) | CPT/HCPCS: 71046; 80048 ==

== ENCOUNTER → 2018-07-29 | Outpatient (REF) | payer OTHER ==
[2018-07-29 12:16] LABS: BASO % 0.4 % (0.0-1.0); EOS # 0.1 10^3/uL (0.0-0.50); EOS % 1.5 % (0.0-3.0); HEMATOCRIT 31.7 % (36.0-47.0); HEMOGLOBIN 9.9 g/dl (12.0-15.5); IMMATURE GRANULOCYTE % 0.6 % (0-3.0); LYMPH # 1.4 10^3/uL (1.5-4.5); LYMPH % 28.5 % (24.0-44.0); MEAN CORPUSCULAR HEMOGLOBIN 28.9 pg (27.0-33.0); MEAN CORPUSCULAR HGB CONC 31.2 g/dl (32.0-36.5); MEAN CORPUSCULAR VOLUME 92.7 fl (80.0-96.0); MONO # 0.4 10^3/uL (0.0-0.8); MONO % 8.9 % (0.0-5.0); NEUTROPHILS # 2.8 10^3/uL (1.8-7.7); NEUTROPHILS % 60.1 % (36.0-66.0); PLATELET COUNT, AUTOMATED 190 10^3/uL (150-450); RED BLOOD COUNT 3.42 10^6/uL (4.00-5.40); RED CELL DISTRIBUTION WIDTH 13.3 % (11.5-14.5); WHITE BLOOD COUNT 4.7 10^3/uL (4.0-10.0)
[2018-07-29 17:30] LABS: ANION GAP 9 MEQ/L (8-16); BLOOD UREA NITROGEN 15 MG/DL (7-18); CALCIUM LEVEL 9.5 MG/DL (8.8-10.2); CARBON DIOXIDE LEVEL 32 MEQ/L (21-32); CHLORIDE LEVEL 102 MEQ/L (98-107); CREATININE FOR GFR 0.97 MG/DL (0.55-1.30); GLOMERULAR FILTRATION RATE 58.8 (>32); GLUCOSE, FASTING 93 MG/DL (70-100); POTASSIUM SERUM 3.8 MEQ/L (3.5-5.1); SODIUM LEVEL 143 MEQ/L (136-145)
== END ==
LOC: M SFHCPLAZ 10:30
DX: R06.02 Shortness of breath (principal)
CPT/HCPCS: 80048

== ENCOUNTER → 2018-08-03 | Outpatient (REF) | payer OTHER ==
[2018-08-03 12:51] LABS: HEMATOCRIT 32.7 % (36.0-47.0); HEMOGLOBIN 10.4 g/dl (12.0-15.5); MEAN CORPUSCULAR HEMOGLOBIN 29.5 pg (27.0-33.0); MEAN CORPUSCULAR HGB CONC 31.8 g/dl (32.0-36.5); MEAN CORPUSCULAR VOLUME 92.6 fl (80.0-96.0); PLATELET COUNT, AUTOMATED 186 10^3/uL (150-450); RED BLOOD COUNT 3.53 10^6/uL (4.00-5.40); RED CELL DISTRIBUTION WIDTH 13.6 % (11.5-14.5); RETIC HEMOGLOBIN EQUIVALENT 32.4 pg (24-36); RETICULOCYTE # 84.4 10^9/L (17-77); RETICULOCYTE % 2.4 % (0.5-1.5)
[2018-08-03 13:30] LABS: ANION GAP 8 MEQ/L (8-16); BLOOD UREA NITROGEN 12 MG/DL (7-18); CALCIUM LEVEL 9.1 MG/DL (8.8-10.2); CARBON DIOXIDE LEVEL 32 MEQ/L (21-32); CHLORIDE LEVEL 102 MEQ/L (98-107); CREATININE FOR GFR 0.99 MG/DL (0.55-1.30); FERRITIN 80 NG/ML (8-252); FREE T4 1.29 NG/DL (0.76-1.46); GLOMERULAR FILTRATION RATE 57.5 (>32); GLUCOSE, FASTING 106 MG/DL (70-100); IRON (FE) 46 UG/DL (50-170); PERCENT SATURATION 16.3 % (13.2-45.0); POTASSIUM SERUM 3.4 MEQ/L (3.5-5.1); SODIUM LEVEL 142 MEQ/L (136-145); TOTAL IRON BINDING CAPACITY 282 UG/DL (250-450)
[2018-08-03 13:31] LABS: FOLATE 11.5 NG/ML
[2018-08-04 08:29] LABS: TRANSFERRIN 212 mg/dL (200-370)
== END ==
LOC: M SFHCPLAZ 09:53
DX: D64.9 Anemia, unspecified (principal); E03.9 Hypothyroidism, unspecified; I27.20 Pulmonary hypertension, unspecified
CPT/HCPCS: 82746

== ENCOUNTER → 2018-08-14 | Outpatient (REF) | payer OTHER ==
[2018-08-14 17:46] LABS: ALBUMIN 3.5 GM/DL (3.2-5.2); ANION GAP 5 MEQ/L (8-16); BLOOD UREA NITROGEN 15 MG/DL (7-18); CALCIUM LEVEL 9.1 MG/DL (8.8-10.2); CARBON DIOXIDE LEVEL 35 MEQ/L (21-32); CHLORIDE LEVEL 103 MEQ/L (98-107); CREATININE FOR GFR 1.13 MG/DL (0.55-1.30); GLOMERULAR FILTRATION RATE 49.3 (>32); GLUCOSE, FASTING 101 MG/DL (70-100); PHOSPHORUS LEVEL 3.2 MG/DL (2.5-4.9); POTASSIUM SERUM 4.2 MEQ/L (3.5-5.1); SODIUM LEVEL 143 MEQ/L (136-145)
== END ==
LOC: M LAB REF 16:22
DX: I50.32 Chronic diastolic (congestive) heart failure (principal)
CPT/HCPCS: 80069

== ENCOUNTER → 2018-11-30 | Outpatient (REF) | payer MEDICARE, OTHER ==
[~2018-11-30] MED LIST changes: +ACET500T15 PO; -ACETAMINOPHEN 325 MG TAB PO PRN; +BACITAB PO; -BSS with VANC/TOB/EPI for EYE CASES IR ONE; +CEFD300CAP PO; -CYCLOPENTOLATE 2% OPHTH SOLN 2ML BTL OD ONE; +KLOR10TA76 PO; -LIDOCAINE 3.5 % 1ML OPHTH TOPICAL GEL OU ONE; -MIDAZOLAM INJ 2 MG/2 ML VIAL (J2250) As Ordered ONE; -OFLOXACIN 0.3 % (OCUFLOX) OPTH SOL 5ML OD ONE; -PHENYLEPHRINE 2.5% OPHTH SOL 2ML OD ONE; -PROPARACAINE 0.5% OPHTH SOL 15ML OD PRN; -TROPICAMIDE 1% OPHTH SOLN 2ML OD ONE; +VITA-121 PO; +VITMTA PO; -fentaNYL 100 MCG/2 ML INJECTION (J3010) As Ordered ONE
== END ==
LOC: M SFHCWAGY 12:59
PROVIDERS: ATTEND Nurse Practitioner Family
DX: L28.0 Lichen simplex chronicus (principal)
CPT/HCPCS: 81002; 87070; 87077; G0463

== ENCOUNTER → 2018-12-01 | Outpatient (REF) | payer MEDICARE ==
[2018-12-01 18:31] LABS: APPEARANCE, URINE CLOUDY (CLEAR); BACTERIA, URINE AUTO 3+ (NEGATIVE); BILIRUBIN, URINE AUTO NEGATIVE (NEGATIVE); BLOOD, URINE BLOOD 2+ (NEGATIVE); COLOR, URINE YELLOW (YELLOW); GLUCOSE, URINE (UA) AUTO NEGATIVE (NEGATIVE); KETONE, URINE AUTO NEGATIVE (NEGATIVE); LEUKOCYTE ESTERASE, URINE AUTO 3+ (NEGATIVE); MUCUS, URINE SMALL (NEGATIVE); NITRITE, URINE AUTO NEGATIVE (NEGATIVE); PROTEIN, URINE AUTO 1+ mg/dL (NEGATIVE); RBC, URINE AUTO 10 /HPF (0-3); SPECIFIC GRAVITY URINE AUTO 1.019 (1.002-1.035); SQUAMOUS EPITHELIAL CELL UR AU 10 /HPF (0-6); UROBILINOGEN, URINE AUTO 0.2 mg/dL (0.0-2.0); WBC, URINE AUTO 34 /HPF (0-3)
[2018-12-01 18:41] LABS: HEMATOCRIT 37.8 % (36.0-47.0); MEAN CORPUSCULAR HEMOGLOBIN 28.7 pg (27.0-33.0); MEAN CORPUSCULAR HGB CONC 31.7 g/dl (32.0-36.5); MEAN CORPUSCULAR VOLUME 90.4 fl (80.0-96.0); PLATELET COUNT, AUTOMATED 173 10^3/uL (150-450); RED BLOOD COUNT 4.18 10^6/uL (4.00-5.40); WHITE BLOOD COUNT 5.1 10^3/uL (4.0-10.0)
[2018-12-01 19:06] LABS: CREATININE FOR GFR 1.24 MG/DL (0.55-1.30); FREE T4 1.18 NG/DL (0.76-1.46); GLOMERULAR FILTRATION RATE 44.2 (>32); POTASSIUM SERUM 4.2 MEQ/L (3.5-5.1); THYROID STIMULATING HORMONE 3.14 uIU/ML (0.358-3.740)
== END ==
LOC: M SFHCPLAZ 14:56
PROVIDERS: ATTEND Nurse Practitioner Family
DX: D50.9 Iron deficiency anemia, unspecified (principal); E03.9 Hypothyroidism, unspecified; I11.0 Hypertensive heart disease with heart failure; R30.0 Dysuria
CPT/HCPCS: 36415; 80048; 81001; 82728; 84439; 84443; 85027; 87086; G0463

== ENCOUNTER → 2019-02-05 | Outpatient (REF) | payer MEDICARE ==
[~2019-02-05] MED LIST changes: -MULT1CHW39 PO; +MULT200T7 PO
[2019-02-05 14:05] LABS: ALBUMIN 3.5 GM/DL (3.2-5.2); CALCIUM LEVEL 9.4 MG/DL (8.8-10.2); CREATININE FOR GFR 1.2 MG/DL (0.55-1.30); GLOMERULAR FILTRATION RATE 45.9 (>32); PHOSPHORUS LEVEL 3.2 MG/DL (2.5-4.9); POTASSIUM SERUM 3.6 MEQ/L (3.5-5.1)
== END ==
LOC: M LABDRAWP 11:37
PROVIDERS: ATTEND Physician Assistant
DX: I50.32 Chronic diastolic (congestive) heart failure (principal)

== ENCOUNTER → 2019-08-17 | Outpatient (CLI) | payer MEDICARE ==
[~2019-08-17] MED LIST changes: +BISO10TA10 PO; -BISO10TA6 PO
--- NOTE | 2019-08-17 11:27 | REP ---
Two-view chest: 08/17/2019 11:15 . Indication: Dyspnea. Comparison: 07/29/2019. Findings: The lungs are clear. There is no pneumothorax or significant pleural fluid. Diffuse osteopenia is noted. There is exaggerated thoracic kyphosis. Cardiomegaly is present. Impression: No acute cardiopulmonary process. Electronically Signed by Dustin Flanagan DO 08/17/2019 11:19 A
== END ==
LOC: M SMT 11:01
PROVIDERS: ATTEND Nurse Practitioner Family
DX: J06.9 Acute upper respiratory infection, unspecified (principal); I51.7 Cardiomegaly; M85.88 Other specified disorders of bone density and structure, other site; I50.32 Chronic diastolic (congestive) heart failure
CPT/HCPCS: 36415; 71046; 80048; 83880; 84443; 85025; G0463

== ENCOUNTER → 2019-08-17 | Outpatient (REF) | payer MEDICARE ==
[2019-08-17 13:04] LABS: BASO % 0.7 % (0.0-1.0); EOS # 0.4 10^3/uL (0.0-0.5); EOS % 7.7 % (0.0-3.0); HEMATOCRIT 34.8 % (36.0-47.0); LYMPH # 1.4 10^3/uL (1.5-5.0); LYMPH % 25.1 % (24.0-44.0); MEAN CORPUSCULAR HEMOGLOBIN 28.9 pg (27.0-33.0); MEAN CORPUSCULAR HGB CONC 31.6 g/dl (32.0-36.5); MEAN CORPUSCULAR VOLUME 91.6 fl (80.0-96.0); MONO # 0.5 10^3/uL (0.0-0.8); MONO % 9.7 % (0.0-5.0); NEUTROPHILS # 3.1 10^3/uL (1.5-8.5); NEUTROPHILS % 56.4 % (36.0-66.0); PLATELET COUNT, AUTOMATED 197 10^3/uL (150-450); WHITE BLOOD COUNT 5.5 10^3/uL (4.0-10.0)
[2019-08-17 13:08] LABS: CALCIUM LEVEL 9.4 MG/DL (8.8-10.2); CREATININE FOR GFR 1.18 MG/DL (0.55-1.30); GLOMERULAR FILTRATION RATE 46.8 (>32); POTASSIUM SERUM 3.8 MEQ/L (3.5-5.1); THYROID STIMULATING HORMONE 5.97 uIU/ML (0.358-3.740)
== END ==
LOC: M SFHCPLAZ 10:31
PROVIDERS: ATTEND Nurse Practitioner Family
DX: J06.9 Acute upper respiratory infection, unspecified (principal); I50.32 Chronic diastolic (congestive) heart failure; R60.0 Localized edema

== ENCOUNTER 2019-11-19 08:15 | Emergency (ER) | payer MEDICARE ==
[~2019-11-19] VITALS: Ht 160 cm; Wt 119.5 kg
[~2019-11-19 08:15] MED LIST changes: -BISO10TA10 PO; +BISO10TA14 PO
[2019-11-19] MEDS ORDERED: TORS20TA2 (08:39)
[2019-11-19] MEDS ORDERED: AMLO5TAB6 (08:39)
[2019-11-19] MEDS ORDERED: LEVO25TA5 (08:39)
--- NOTE | 2019-11-19 09:04 | REP ---
CHEST, SINGLE VIEW: Single view of the chest is performed and compared to a prior study of 06/23/2018. There is no acute infiltrate or pulmonary edema. There is cardiomegaly again noted. There is calcification of the thoracic aorta. Mediastinal silhouette is unchanged. IMPRESSION: Cardiomegaly. No acute infiltrate. Electronically Signed by Kike Menard MD 11/24/2019 09:30 A
[2019-11-19 09:06] LABS: BASO % 0.6 % (0.0-1.0); EOS # 0.2 10^3/uL (0.0-0.5); EOS % 4.3 % (0.0-3.0); HEMATOCRIT 37.1 % (36.0-47.0); HEMOGLOBIN 11.4 g/dl (12.0-15.5); LYMPH # 1.3 10^3/uL (1.5-5.0); LYMPH % 24.3 % (24.0-44.0); MEAN CORPUSCULAR HEMOGLOBIN 28.2 pg (27.0-33.0); MEAN CORPUSCULAR HGB CONC 30.7 g/dl (32.0-36.5); MEAN CORPUSCULAR VOLUME 91.8 fl (80.0-96.0); MONO # 0.5 10^3/uL (0.0-0.8); MONO % 8.6 % (0.0-5.0); NEUTROPHILS # 3.3 10^3/uL (1.5-8.5); PLATELET COUNT, AUTOMATED 194 10^3/uL (150-450); RED BLOOD COUNT 4.04 10^6/uL (4.00-5.40); WHITE BLOOD COUNT 5.4 10^3/uL (4.0-10.0)
[2019-11-19 09:25] LABS: INFLUENZA A AMPLIFICATION NEGATIVE (NEGATIVE); INFLUENZA B AMPLIFICATION NEGATIVE (NEGATIVE)
[2019-11-19 09:25] LABS: INR 2.08; PARTIAL THROMBOPLASTIN TIME 27.7 SECONDS (25.0-38.4); PROTHROMBIN TIME 23.2 SECONDS (11.8-14.0)
[2019-11-19 09:52] LABS: BLOOD UREA NITROGEN 23 MG/DL (7-18); CALCIUM LEVEL 9.4 MG/DL (8.8-10.2); CARBON DIOXIDE LEVEL 29 MEQ/L (21-32); CHLORIDE LEVEL 99 MEQ/L (98-107); CK-MB VALUE MASS < 1.0 NG/ML (<3.6); CPK CREATINE PHOSPHOKINASE 111 U/L (26-192); CREATININE FOR GFR 1.33 MG/DL (0.55-1.30); GLOMERULAR FILTRATION RATE 40.7 (>32); GLUCOSE, FASTING 116 MG/DL (70-100); POTASSIUM SERUM 4.5 MEQ/L (3.5-5.1); SODIUM LEVEL 140 MEQ/L (136-145); THYROXINE (T4) 13.3 UG/DL (4.5-12.0); TROPONIN I < 0.02 NG/ML (< 0.10)
[2019-11-19] MEDS ORDERED: ISOVUE-370 76% 100ML VIAL (Q9967) As Ordered ONE ×2 (10:29→12:20)
[2019-11-19 11:16] LABS: NT-PRO BNP 467 PG/ML (<450)
--- NOTE | 2019-11-19 13:41 | REP ---
CT PULMONARY ANGIOGRAM: With IV contrast. HISTORY: Shortness of breath. History of pulmonary embolus. Rule out pulmonary embolus. COMPARISON STUDIES: Comparison CT study May 26, 2012. CONTRAST DOSE: 110 mL of Isovue [address] TECHNIQUE: Helical scanning is acquired and overlapping 1.5 mm and contiguous 3 mm axial images are reformatted. In addition, maximum intensity projection and multiplanar re-formation images are generated in sagittal and coronal imaging projections. The initial contrast dose injection was aborted due to technical issues. The IV was restarted and a second acquisition was performed. CT PULMONARY ANGIOGRAPHIC FINDINGS: There is good opacification of the pulmonary arterial tree. There is no filling defect or vessel cutoff to suggest pulmonary embolism. Vascular calcification is seen in the aorta. No aneurysm or dissection is appreciated. Visualized upper abdominal structures are unremarkable. No adrenal abnormality is seen. There is no evidence of infiltrate or pleural effusion. No pericardial effusion is seen. Cardiomegaly is observed. No bony destructive lesion is appreciated. There is fairly bulky left axillary lymphadenopathy however. The largest lymph node measures 5 x 2.7 x 2.6 cm. There is a 4 x 3.3 x 4.1 cm node and two or three other smaller enlarged lymph nodes. IMPRESSION: No CT evidence of pulmonary embolus. Bulky left axillary lymphadenopathy rule out lymphoma or metastatic malignancy. Electronically Signed by Joseph Arnold MD 11/19/2019 08:46 P
--- NOTE | 2019-11-19 15:32 | REP ---
Duplex extremity venous ultrasound: Bilateral lower extremity. History: Swelling. History of pulmonary embolus. Rule out DVT. Findings: The deep veins are anechoic and fully compressible from the groin to the popliteal fossa in the left and right lower extremity. Color flow imaging is homogeneous. Spectral Doppler interrogation demonstrates intact respiratory variation in flow and normal manual augmentation of flow. There is no evidence of deep vein thrombosis. Impression: Negative bilateral lower extremity duplex venous ultrasound. No evidence of deep vein thrombosis. Electronically Signed by Joseph Arnold MD 11/19/2019 03:22 P
[2019-11-19 16:24] VITALS: BP 151/67
--- NOTE | 2019-11-20 09:49 | ECGEPIP ---
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
--- NOTE | 2019-11-24 14:29 | ED PDOC ---
Post-Departure Follow-Up ander forbes and dr kimble faxed formal report of cta chest for fu Odalis Harding MD Nov 24, 2019 14:29
== END 2019-11-19 16:36 | disposition home or self-care (01) ==
LOC: M ED 08:15 → EDBD 08:15 → M ED 16:36
DX: R59.0 Localized enlarged lymph nodes (principal); R06.02 Shortness of breath; I51.7 Cardiomegaly; E78.5 Hyperlipidemia, unspecified; Z88.0 Allergy status to penicillin; Z79.01 Long term (current) use of anticoagulants; Z79.899 Other long term (current) drug therapy
CPT/HCPCS: 36415; 71045; 71275; 80048; 82550; 82553; 83605; 83880; 84436; 84443; 84484; 85025; 85610; 85730; 87040; 87502; 93005; 93041; 93970; 94760; 99285; Q9967

== ENCOUNTER → 2020-07-11 | Outpatient (REF) | payer MEDICARE ==
[~2020-07-11] MED LIST changes: +AMLO1TAB24 PO; +BISO5TAB14 PO; +LEVO25TA5 PO; +NYST10CR TOP; +POTA1TAB14 PO; +TORS20TA2 PO; +XARE15TA PO
[2020-07-11 17:20] LABS: BASO % 0.6 % (0.0-1.0); EOS # 0.2 10^3/uL (0.0-0.5); EOS % 3.2 % (0.0-3.0); HEMATOCRIT 37.5 % (36.0-47.0); HEMOGLOBIN 11.5 g/dl (12.0-15.5); LYMPH # 1.7 10^3/uL (1.5-5.0); LYMPH % 26.1 % (24.0-44.0); MEAN CORPUSCULAR HEMOGLOBIN 28.2 pg (27.0-33.0); MEAN CORPUSCULAR HGB CONC 30.7 g/dl (32.0-36.5); MEAN CORPUSCULAR VOLUME 91.9 fl (80.0-96.0); MONO # 0.6 10^3/uL (0.0-0.8); MONO % 8.9 % (0.0-5.0); NEUTROPHILS % 60.6 % (36.0-66.0); PLATELET COUNT, AUTOMATED 229 10^3/uL (150-450); RED BLOOD COUNT 4.08 10^6/uL (4.00-5.40); WHITE BLOOD COUNT 6.6 10^3/uL (4.0-10.0)
[2020-07-11 17:56] LABS: ALBUMIN 3.4 GM/DL (3.2-5.2); BILIRUBIN,TOTAL 0.3 MG/DL (0.2-1.0); CALCIUM LEVEL 9.7 MG/DL (8.8-10.2); CREATININE FOR GFR 1.22 MG/DL (0.55-1.30); GLOMERULAR FILTRATION RATE 44.9 (>32); POTASSIUM SERUM 4.6 MEQ/L (3.5-5.1); THYROID STIMULATING HORMONE 4.47 uIU/ML (0.358-3.740); TOTAL PROTEIN 8.8 GM/DL (6.4-8.2)
[2020-07-11 19:28] LABS: FREE T4 1.5 NG/DL (0.76-1.46)
== END ==
LOC: M PLALAB 16:59
PROVIDERS: ATTEND Nurse Practitioner Family
DX: I11.0 Hypertensive heart disease with heart failure (principal); E03.9 Hypothyroidism, unspecified; I50.32 Chronic diastolic (congestive) heart failure; R60.9 Edema, unspecified

== ENCOUNTER → 2020-07-17 | Outpatient (CLI) | payer MEDICARE ==
--- NOTE | 2020-08-03 09:03 | REP ---
DIGITAL DIAGNOSTIC BILATERAL MAMMOGRAM WITH CAD, 3D TOMOSYNTHESIS, AND FOCUSED BILATERAL BREAST SONOGRAPHY HISTORY: Left breast lump, lymphadenopathy, left breast enlargement. No comparison mammography. MAMMOGRAPHIC FINDINGS: Screening and diagnostic imaging of the left breast demonstrates diffuse marked dermal thickening and some diffuse stromal thickening in the left breast. There is a prominent draining vein medially in the left breast. There is a grouping of polymorphic microcalcifications at 12 o'clock in the left breast without an observable mass. These changes are considered suspicious. Diagnostic and screening images of the right breast demonstrate a 7 mm somewhat spiculated nodule containing microcalcifications in the central retroareolar left breast at middle third level. There is a grouping of coarse benign appearing calcifications more posteriorly at 12 o'clock in the right breast. No other suspicious right breast abnormality. SONOGRAPHIC FINDINGS: Bilateral focused breast sonography is performed. Concentrated scanning at 12 o'clock position of each breast. On the right, at 12 o'clock there is an irregular shaped hypoechoic lesion with central echogenic focus, which is felt to correspond with the mammographic finding of the small spiculated lesion. This measures 7 x 10 x 4 mm by ultrasound and is located approximately 6 cm from the nipple. This is considered suspicious. No other lesion in the right breast by ultrasound. In the left breast at 12 o'clock, there are two small calcifications visualized adjacent to one another approximately 10 cm from the nipple. These may relate to the mammographic grouping of microcalcifications, which is approximately 12 cm from the nipple mammographically. They are not very conspicuous by ultrasound. IMPRESSION: BI-RADS Category 4 suspicious bilateral mammographic findings. Recommend ultrasound-guided needle biopsy of the right breast with marker clip placement and post-clip placement mammography. Recommend skin biopsy for diffuse dermal thickening left breast be considered. There is a microcalcific grouping at 12 o'clock in the left breast for which stereotactic needle biopsy should be considered. Also, I note that there was marked adenopathy visible in the left axilla on CT study of the chest from November 2019. Ultrasound-guided needle biopsy of the enlarged axillary lymph nodes should be considered as well. Patient letter M4. This mammogram is read in conjunction with an FDA approved computer-assisted detection device. SRIRAM
== END ==
LOC: M WHC 10:53
PROVIDERS: ATTEND Nurse Practitioner Family
DX: N63.15 Unspecified lump in the right breast, overlapping quadrants (principal); R92.0 Mammographic microcalcification found on diagnostic imaging of breast
CPT/HCPCS: 76642; 77066; G0279

== ENCOUNTER 2020-08-12 11:02 | Emergency (ER) | payer MEDICARE ==
[~2020-08-12] VITALS: Ht 162.6 cm; Wt 124.1 kg
[~2020-08-12 11:02] MED LIST changes: -BISO5TAB14 PO; -NYST10CR TOP; -POTA1TAB14 PO; -XARE15TA PO
[2020-08-12 11:49] LABS: BASO % 0.7 % (0.0-1.0); EOS # 0.2 10^3/uL (0.0-0.5); EOS % 4.2 % (0.0-3.0); HEMATOCRIT 33.8 % (36.0-47.0); HEMOGLOBIN 10.5 g/dl (12.0-15.5); LYMPH # 1.3 10^3/uL (1.5-5.0); LYMPH % 28.3 % (24.0-44.0); MEAN CORPUSCULAR HEMOGLOBIN 28.1 pg (27.0-33.0); MEAN CORPUSCULAR HGB CONC 31.1 g/dl (32.0-36.5); MEAN CORPUSCULAR VOLUME 90.4 fl (80.0-96.0); MONO # 0.5 10^3/uL (0.0-0.8); MONO % 10.1 % (0.0-5.0); NEUTROPHILS # 2.6 10^3/uL (1.5-8.5); NEUTROPHILS % 56.3 % (36.0-66.0); PLATELET COUNT, AUTOMATED 200 10^3/uL (150-450); RED BLOOD COUNT 3.74 10^6/uL (4.00-5.40); WHITE BLOOD COUNT 4.6 10^3/uL (4.0-10.0)
[2020-08-12 11:55] LABS: VENOUS HCO3 29.7 MEQ/L (23.0-27.0); VENOUS O2 SATURATION 80.8 % (60.0-80.0); VENOUS PARTIAL PRESSURE CO2 55.4 mmHg (38.0-50.0); VENOUS PARTIAL PRESSURE O2 46.5 mmHg (30.0-50.0); VENOUS PH 7.347 UNITS (7.330-7.430); VENOUS STANDARD HCO3 26.8 MEQ/L; VENOUS TOTAL CO2 31.4 MEQ/L (24.0-28.0)
--- NOTE | 2020-08-12 12:15 | ECGEPIP ---
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
[2020-08-12 12:21] LABS: ALBUMIN 3.1 GM/DL (3.2-5.2); BILIRUBIN,DIRECT 0.1 MG/DL (0.0-0.2); BILIRUBIN,TOTAL 0.4 MG/DL (0.2-1.0); CALCIUM LEVEL 9.1 MG/DL (8.8-10.2); CREATININE FOR GFR 1.11 MG/DL (0.55-1.30); GLOMERULAR FILTRATION RATE 50.1 (>32); POTASSIUM SERUM 3.8 MEQ/L (3.5-5.1); THYROID STIMULATING HORMONE 5.1 uIU/ML (0.358-3.740); TOTAL PROTEIN 7.9 GM/DL (6.4-8.2)
[2020-08-12 12:48] VITALS: O2SAT 91
[2020-08-12] MEDS ORDERED: FUROSEMIDE 40MG/4ML VIAL (J1940) IV ONE (13:00)
[2020-08-12 13:30] VITALS: BP 156/72
--- NOTE | 2020-08-12 13:48 | REPVR ---
PROCEDURE INFORMATION: Exam: XR Chest, 1 View Exam date and time: 08/12/2020 12:44 PM Age: 84 years old Clinical indication: Cough; Additional info: Dyspnea/cough TECHNIQUE: Imaging protocol: XR of the chest Views: 1 view. COMPARISON: CR PORTABLE CHEST X-RAY 11/19/2019 8:30 AM FINDINGS: Lungs: Interstitial prominence without acute infiltrate. Pleural space: No significant pleural effusion. Heart/Mediastinum: Borderline cardiomegaly. Bones/joints: Osteopenia and degenerative change. IMPRESSION: Interstitial prominence without acute infiltrate. Electronically signed by: Rafael Carrasquillo On 08/12/2020 13:47:42 PM
== END 2020-08-12 14:01 | disposition home or self-care (01) ==
LOC: M ED 11:02 → EDBD 11:02 → M ED 14:01
DX: I13.0 Hypertensive heart and chronic kidney disease with heart failure and stage 1 through stage 4 chronic kidney disease, or unspecified chronic kidney disease (principal); I89.0 Lymphedema, not elsewhere classified; I48.91 Unspecified atrial fibrillation; J84.89 Other specified interstitial pulmonary diseases; E78.5 Hyperlipidemia, unspecified; E03.9 Hypothyroidism, unspecified; Z88.0 Allergy status to penicillin; Z79.01 Long term (current) use of anticoagulants; Z79.899 Other long term (current) drug therapy
CPT/HCPCS: 71045; 80047; 80048; 80076; 82803; 83880; 84443; 84484; 85025; 87486; 87581; 87633; 87798; 93005; 93041; 94760; 96374; 99285; J1940

== ENCOUNTER 2020-08-16 11:56 | Observation (INO) | payer MEDICARE ==
[~2020-08-16] VITALS: Ht 162.6 cm; Wt 120.7 kg
[~2020-08-16 11:56] MED LIST changes: -BISO5TAB14 PO; -NYST10CR TOP; -POTA1TAB14 PO; -XARE15TA PO
[2020-08-16] MEDS: METOPROLOL 5 MG/5 ML VIAL IV SCH ×3 (12:43→12:55)
[2020-08-16 12:50] LABS: BASO % 0.3 % (0.0-1.0); EOS # 0.1 10^3/uL (0.0-0.5); EOS % 1.8 % (0.0-3.0); HEMATOCRIT 37.4 % (36.0-47.0); HEMOGLOBIN 11.9 g/dl (12.0-15.5); LYMPH # 1.7 10^3/uL (1.5-5.0); LYMPH % 22.4 % (24.0-44.0); MEAN CORPUSCULAR HEMOGLOBIN 28.6 pg (27.0-33.0); MEAN CORPUSCULAR HGB CONC 31.8 g/dl (32.0-36.5); MEAN CORPUSCULAR VOLUME 89.9 fl (80.0-96.0); MONO # 0.7 10^3/uL (0.0-0.8); MONO % 9.1 % (0.0-5.0); NEUTROPHILS # 5.1 10^3/uL (1.5-8.5); PLATELET COUNT, AUTOMATED 198 10^3/uL (150-450); RED BLOOD COUNT 4.16 10^6/uL (4.00-5.40); WHITE BLOOD COUNT 7.7 10^3/uL (4.0-10.0)
[2020-08-16 13:01] LABS: INR 1.02; PROTHROMBIN TIME 13.6 SECONDS (12.5-14.3)
[2020-08-16 13:18] LABS: ALBUMIN 3.3 GM/DL (3.2-5.2); ALT/SGPT 9 U/L (12-78); BILIRUBIN,DIRECT < 0.1 MG/DL (0.0-0.2); BILIRUBIN,TOTAL 0.5 MG/DL (0.2-1.0); LIPASE 145 U/L (73-393); TOTAL PROTEIN 8.4 GM/DL (6.4-8.2)
--- NOTE | 2020-08-16 13:21 | REPVR ---
PROCEDURE INFORMATION: Exam: XR Chest, 1 View Exam date and time: 08/16/2020 12:04 PM Age: 84 years old Clinical indication: Chest pain TECHNIQUE: Imaging protocol: XR of the chest Views: 1 view. COMPARISON: CR PORTABLE CHEST X-RAY 08/12/2020 12:39 PM FINDINGS: Lungs: There is mild diffuse interstitial edema.No acute infiltrate or consolidation is seen. Pleural space: No pleural effusion. No pneumothorax. Heart/Mediastinum: The heart demonstrates moderate diffuse enlargement. Vasculature: There is dilatation and calcification of the aortic knob. Bones/joints: No acute fracture seen. Other findings: The study is limited due to patient's body habitus. IMPRESSION: There is mild diffuse interstitial edema.No acute infiltrate or consolidation is seen. Electronically signed by: Vincent Duran On 08/16/2020 13:21:11 PM
[2020-08-16] MEDS ORDERED: FUROSEMIDE 40MG/4ML VIAL (J1940) IV ONE (13:30)
[2020-08-16 13:40] LABS: BLOOD UREA NITROGEN 24 MG/DL (7-18); CALCIUM LEVEL 9.5 MG/DL (8.8-10.2); CARBON DIOXIDE LEVEL 30 MEQ/L (21-32); CHLORIDE LEVEL 103 MEQ/L (98-107); CK-MB VALUE MASS < 1.0 NG/ML (<3.6); CPK CREATINE PHOSPHOKINASE 90 U/L (26-192); CREATININE FOR GFR 1.29 MG/DL (0.55-1.30); GLOMERULAR FILTRATION RATE 42.1 (>32); GLUCOSE, FASTING 104 MG/DL (70-100); MB/CK RELATIVE INDEX 1.11 (< OR =4); POTASSIUM SERUM 4.2 MEQ/L (3.5-5.1); SODIUM LEVEL 139 MEQ/L (136-145); TROPONIN I < 0.02 NG/ML (< 0.10)
[2020-08-16] MEDS ORDERED: NYST10CR TOP (14:20)
[2020-08-16] MEDS ORDERED: TORS20TA2 PO (14:20)
[2020-08-16] MEDS ORDERED: POTA1TAB14 PO (14:20)
[2020-08-16] MEDS ORDERED: XARE15TA PO (14:21)
[2020-08-16] MEDS ORDERED: BISO5TAB14 PO (14:30)
[2020-08-16 14:46] LABS: D-DIMER QUANT > 4000 ng/ml (<500)
[2020-08-16] MEDS ORDERED: ISOVUE-370 76% 100ML VIAL As Ordered ONE (15:07)
[2020-08-16 15:10] LABS: PARTIAL THROMBOPLASTIN TIME 25.6 SECONDS (24.2-38.5)
--- NOTE | 2020-08-16 15:40 | REPVR ---
PROCEDURE INFORMATION: Exam: CT Angiography Chest With Contrast Exam date and time: 08/16/2020 3:13 PM Age: 84 years old Clinical indication: Shortness of breath; Additional info: SOB TECHNIQUE: Imaging protocol: Computed tomographic angiography of the chest with intravenous contrast. 3D rendering (Not supervised by radiologist): MIP and/or 3D reconstructed images were created by the technologist. Radiation optimization: All CT scans at this facility use at least one of these dose optimization techniques: automated exposure control; mA and/or kV adjustment per patient size (includes targeted exams where dose is matched to clinical indication); or iterative reconstruction. Contrast material: ISOVUE 370; Contrast volume: 100 ml; Contrast route: INTRAVENOUS (IV); COMPARISON: CT ANGIO CHEST 11/19/2019 10:33 AM FINDINGS: Pulmonary arteries: There is no evidence for central pulmonary embolism. Evaluation of segmental pulmonary arteries is limited due to motion artifact. Aorta: Unremarkable. No aortic aneurysm. No aortic dissection. Veins: Reflux of contrast is noted in the hepatic veins suggesting right heart strain/failure. Lungs: No acute infiltrate or consolidation is seen. Pleural space: No pneumothorax. No pleural effusion. Heart: No cardiomegaly. No pericardial effusion. Lymph nodes: Examination reveals significant interval worsening of extensive left axillary lymphadenopathy since the previous study which is concerning for metastatic lymphadenopathy versus lymphoma. Biopsy or PET scan should be considered for further evaluation. Gallbladder and bile ducts: Status post cholecystectomy. The CBD measures 22 mm in diameter. A tiny 2 mm stone is suspected in the distal common bile duct axial image 182. Bones/joints: There is diffuse syndesmotic fusion of the thoracic spine, consistent with ankylosing spondylitis. Soft tissues: Unremarkable. Other findings: The study is limited due to motion artifact. IMPRESSION: 1. The study is limited due to motion artifact. 2. There is no evidence for central pulmonary embolism. Evaluation of segmental pulmonary arteries is limited due to motion artifact. 3. Reflux of contrast is noted in the hepatic veins suggesting right heart strain/failure. 4. Examination reveals significant interval worsening of extensive left axillary lymphadenopathy since the previous study which is concerning for metastatic lymphadenopathy versus lymphoma. Biopsy or PET scan should be considered for further evaluation. 5. No acute infiltrate or consolidation is seen. Electronically signed by: Vincent Duran On 08/16/2020 15:40:45 PM
[2020-08-16] MEDS ORDERED: NYSTATIN CREAM 15 GM TOP PRN (16:30)
[2020-08-16] MEDS ORDERED: ACETAMINOPHEN TAB 650MG DOSE (2X325MG) PO PRN (16:30)
[2020-08-16] MEDS ORDERED: bisoproloL fumarate 5 MG TAB PO SCH (16:45)
--- NOTE | 2020-08-16 16:46 | HPEPDOC ---
[facility] Medical History & Physical Date of Admission Aug 16, 2020 Date of Service: Aug 16, 2020 History and Physical Chief complaint: Who presented to the hospital at the direction of her breast surgeon and PCP for an elevated heart rate History of present illness: Patient is a 4-year-old female with PMHx of Chronic A. fib (on Xarelto), HTN, Hx of PE (2/2 Factor V Leiden / Lupus anticoagulant), Morbid obesity, DLP, Hypothyroidism, who presented to the hospital at the direction of her primary care provider after she was noted to have an elevated heart rate before getting a breast biopsy. Patient reported that she has had an abnormal mammogram 2 weeks ago and was s cheduled to receive a biopsy with Dr. Nelson today. For evaluation. Patient sent 7. Elevated heart rate center PCP, who then sent her to the ER. In the emergency room, patient was found to have an elevated heart rate and EKG had revealed atrial fibrillation with RVR. Hospitalist services called for further evaluation. Currently, patient had reported palpitations. Upon arrival, she denies any chest pain, nausea, vomiting, pain, constipation, diarrhea, discomfort with urination, any recent fevers or chills. Patient does report shortness breath with exertion. She does report leg swelling that appears to be unchanged for several months. Patient reports that she does experience orthopnea and she sleeps in a reclining chair for the last 1 year. Patient reports that when she uses a bed, she sleeps on her side. Patient had stopped taking Xarelto 5 days prior in anticipation of her biopsy, however was instructed to resume taking it today since the biopsy has been counseled. Denies any changes in her weight or her appetite Past Medical History: Chronic A. fib (on Xarelto), HTN, Hx of PE (2/2 Factor V Leiden / Lupus anticoagulant), Morbid obesity, DLP, Hypothyroidism Past Surgical History: Tonsillectomy Adenoidectomy section Cataract removal Cholecystectomy Allergies: See below Medications: See below Family History: - No history of malignancies Social History: - Denies the use of alcohol, tobacco or illicit drugs - Denies recent travel or sick contacts - Lives with , her daughter and her family - Occupation; patient reports that she never worked Review of Systems: 10 point review of systems complete, all negative otherwise stated in HPI Physical exam: - Vitals: BP [130/74], HR [100], RR [20], Sat [95%RA], Temp [99.2F] - General: Sitting up in chair, speaking full sentences, does not appear to be in any distress, AAOx3 - HEENT: NC, AT, PERRLA - CVS: IrIr, +S1S2 - Lungs: Fair air entry bilaterally, No appreciable wheezing / rales / rhonchi - Abdomen: Soft, Non-distended, Non-tender, obesity - Extremities: 1-2+ pitting edema with chronic venous stasis skin changes, No calf tenderness - Neuro: No focal motor or sensory deficit Assessment and Plan: Palpitations / Elevated HR - likely 2/2 A. fib with RVR - Patient presented to the hospital after she was noted to have an elevated heart rate - EKG reveals atrial fibrillation with RVR - Patient reports that she has had a recent reduction in her bisoprolol dose - CTA 08/16: 1. The study is limited due to motion artifact. 2. There is no evidence for central pulmonary embolism. Evaluation of segmental pulmonary arteries is limited due to motion artifact. 3. Reflux of contrast is noted in the hepatic veins suggesting right heart strain/failure. 4. Examination reveals significant interval worsening of extensive left axillary lymphadenopathy since the previous study which is concerning for metastatic lymphadenopathy versus lymphoma. Biopsy or PET scan should be considered for further evaluation. 5. No acute infiltrate or consolidation is seen. - Will increase dose of bisoprolol to 5 mg - Continue with full anticoagulation with Xarelto - c/w Telemetry monitoring - Discuss case with cardiology; will increase dose of bisoprolol to 5 mg Ischemic changes on EKG - Patient denies any chest pain, shortness of breath, nausea or vomiting - Discuss findings with cardiology; similar to prior EKGs in their office - Troponin x 1 set negative; will repeat - c/w Telemetry monitoring LE edema / Vascular congestion - Patient reports shortness of breath with exertion and orthopnea - Physical reveals feels lower extremity edema with chronic venous stasis changes - Patient reports that she is compliant with her torsemide - CXR 08/16: There is mild diffuse interstitial edema. No acute infiltrate or consolidation is seen. - Will continue with supplemental oxygen as needed to maintain saturation greater than 92% - Will check strict ins/outs, daily weights, fluid restriction - Will check ECHO - Will provide IV furosemide HTN - BP elevated in ER - Will Bisoprolol with holding parameters for now - Will hold Amlodipine for now; will re-evaluate BP with new dose of Bisoprolol Abnormal mammogram with suspicion of malignancy - Patient reported that she had a mammogram completed approximately 2 weeks ago that was noted to be abnormal; patient was scheduled to receive a biopsy today - Imaging above has suggested possibility of left axillary lymphadenopathy; suggesting possibility of metastatic malignancy - Imaging results were conveyed to patient; she has verbalized understanding of the results - Patient is scheduled for her next biopsy in 08/30; has been advised to stop Xarelto 5 days prior be her breast surgeon Hx of PE (2/2 Factor V Leiden / Lupus anticoagulant) - Will resume anticoagulation with Xarelto DLP - Currently not on medications Hypothyroidism - c/w Levothyroxine Morbid obesity - BMI 47.3 - Complicating medical care DVT prophylaxis - Will c/w full anticoagulation with Xarelto Code status: Full code Disposition: - Will keep patient observation status and increase home Bisoprolol dose - Anticipate discharge within 24 hours - Discussed care plan with daughter Lisa ([facility]) [phone] Vital Signs Vital Signs Date Time Temp Pulse Resp B/P (MAP) Pulse Ox O2 Delivery O2 Flow Rate FiO2 08/16/20 16:16 104 96 Room Air 08/16/20 15:30 130/74 (92) 08/16/20 14:11 16 08/16/20 11:58 99.2 Laboratory Data Labs 24H Laboratory Tests 2 08/16/20 12:36: Immature Granulocyte % (Auto) 0.4, Neutrophils (%) (Auto) 66.0, Lymphocytes (%) (Auto) 22.4L, Monocytes (%) (Auto) 9.1H, Eosinophils (%) (Auto) 1.8, Basophils (%) (Auto) 0.3, Neutrophils # (Auto) 5.1, Lymphocytes # (Auto) 1.7, Monocytes # (Auto) 0.7, Eosinophils # (Auto) 0.1, Basophils # (Auto) 0.0, Nucleated Red Blood Cells % (auto) 0.0, Prothrombin Time 13.6, Prothromb Time International Ratio 1.02, Activated Partial Thromboplast Time 25.6, D-Dimer, Quantitative > 4000H, Anion Gap 6L, Glomerular Filtration Rate 42.1, Calcium Level 9.5, Total Bilirubin 0.5, Direct Bilirubin < 0.1, Aspartate Amino Transf (AST/SGOT) 20, Alanine Aminotransferase (ALT/SGPT) 9L, Alkaline Phosphatase 126H, Total Creatine Kinase 90, Creatine Kinase MB < 1.0, Creatine Kinase MB Relative Index 1.11, Troponin I < 0.02, Total Protein 8.4H, Albumin 3.3, Albumin/Globulin Ratio 0.6L, Lipase 145 08/16/20 12:37: POC Glucose (Misc Panel) 106H, POC Sodium (Misc Panel) 141, POC Potassium (Misc Panel) 4.0, POC Chloride (Misc Panel) 101, POC Total CO2 (Misc Panel) 31.0H, POC Blood Urea Nitrogen (Misc Panel 27H, POC Ionized Calcium (Misc Panel) 4.7, POC Creatinine (Misc Panel) 1.3, POC Hematocrit (Misc Panel) 38.0 CBC/BMP Laboratory Tests 08/16/20 12:36 Home Medications Scheduled Amlodipine Besylate (Amlodipine Besylate) 5 Mg Tablet, 5 MG PO DAILY Bisoprolol Fumarate (Bisoprolol Fumarate) 5 Mg Tablet, 2.5 MG PO DAILY SENDING NEW RX TO PHARMACY Levothyroxine Sodium (Levothyroxine Sodium) 25 Mcg Tablet, 25 MCG PO QAM Potassium Chloride (Potassium Chloride) 20 Meq Tablet.er, 20 MEQ PO DAILY Rivaroxaban (Xarelto) 15 Mg Tablet, 15 MG PO DAILY HELD FOR 5 DAYS PRIOR TO PROCEDURE 08/16/20 Torsemide (Torsemide) 20 Mg Tablet, 40 MG PO QAM Torsemide (Torsemide) 20 Mg Tablet, 20 MG PO QPM Scheduled PRN Nystatin (Nystatin) 15 Gm Cream..g., 1 APLCT TOP TID PRN for RASH/ITCHING APPLY UNDER BREASTS/GROIN Allergies Coded Allergies: Penicillins (Verified Allergy, Unknown, 08/12/20) and penicillin cross reactors ERNESTIAN PHILLIPS MD Aug 16, 2020 16:46
[2020-08-16] MEDS: FUROSEMIDE 40MG/4ML VIAL (J1940) IV SCH (17:32)
[2020-08-16 17:47] VITALS: BP 164/74
[2020-08-16 19:01] LABS: CK-MB VALUE MASS < 1.0 NG/ML (<3.6); CPK CREATINE PHOSPHOKINASE 52 U/L (26-192); MB/CK RELATIVE INDEX 1.92 (< OR =4); TROPONIN I < 0.02 NG/ML (< 0.10)
[2020-08-16 20:00] VITALS: BP 136/54
[2020-08-17] VITALS: BP 124/80
[2020-08-17 04:00] VITALS: BP 131/65
[2020-08-17 05:06] LABS: BASO % 0.3 % (0.0-1.0); EOS # 0.2 10^3/uL (0.0-0.5); EOS % 2.9 % (0.0-3.0); HEMATOCRIT 32.3 % (36.0-47.0); HEMOGLOBIN 10.3 g/dl (12.0-15.5); LYMPH # 1.3 10^3/uL (1.5-5.0); LYMPH % 22.2 % (24.0-44.0); MEAN CORPUSCULAR HEMOGLOBIN 28.3 pg (27.0-33.0); MEAN CORPUSCULAR HGB CONC 31.9 g/dl (32.0-36.5); MEAN CORPUSCULAR VOLUME 88.7 fl (80.0-96.0); MONO # 0.7 10^3/uL (0.0-0.8); MONO % 11.3 % (0.0-5.0); NEUTROPHILS # 3.8 10^3/uL (1.5-8.5); PLATELET COUNT, AUTOMATED 177 10^3/uL (150-450); RED BLOOD COUNT 3.64 10^6/uL (4.00-5.40)
[2020-08-17 05:30] LABS: CALCIUM LEVEL 8.9 MG/DL (8.8-10.2); CREATININE FOR GFR 1.18 MG/DL (0.55-1.30); GLOMERULAR FILTRATION RATE 46.7 (>32); MAGNESIUM LEVEL 2.3 MG/DL (1.8-2.4); POTASSIUM SERUM 3.4 MEQ/L (3.5-5.1)
[2020-08-17] MEDS ORDERED: LEVOTHYROXINE 25MCG TABLET (0.025MG) PO SCH (06:00)
[2020-08-17] MEDS ORDERED: BISO5TAB14 PO (07:27)
[2020-08-17 07:41] VITALS: BP 124/70
[2020-08-17 07:48] VITALS: BP 124/70
[2020-08-17] MEDS: FUROSEMIDE 40MG/4ML VIAL (J1940) IV SCH (07:50)
[2020-08-17] MEDS ORDERED: RIVAROXABAN 15 MG TAB (XARELTO) PO SCH (08:00)
[2020-08-17] MEDS ORDERED: POTASSIUM CHLORIDE 10 MEQ SR TABLET PO ONE (09:00)
[2020-08-17] MEDS ORDERED: BISOPROLOL FUM 2.5 MG PER 1/2TAB PO SCH (09:00)
[2020-08-17] MEDS ORDERED: amLODIPine 5 MG TAB PO SCH (09:00)
[2020-08-17] MEDS ORDERED: FLUBLOK(EGG FREE)(QUAD)INFLUENZA VACC 0.5ML SYRINGE 18YRS & OLDER IM ONE (09:00)
[2020-08-17] MEDS ORDERED: POTASSIUM CHLORIDE 10 MEQ SR TABLET PO SCH (09:00)
--- NOTE | 2020-08-17 09:13 | DS.PDOC ---
Discharge Summary General Date of Admission Aug 16, 2020 at 16:23 Date of Discharge 08/17/2020 Discharge Summary PROCEDURES PERFORMED DURING STAY: [None]. ADMITTING DIAGNOSES / DISCHARGE DIAGNOSES: Palpitations / Elevated HR - likely 2/2 A. fib with RVR Ischemic changes on EKG LE edema / Vascular congestion HTN Abnormal mammogram with suspicion of malignancy Hx of PE (2/2 Factor V Leiden / Lupus anticoagulant) DLP Hypothyroidism Morbid obesity DVT prophylaxis COMPLICATIONS/CHIEF COMPLAINT: Palpitations HISTORY OF PRESENT ILLNESS: Patient is a 4-year-old female with PMHx of Chronic A. fib (on Xarelto), HTN, Hx of PE (2/2 Factor V Leiden / Lupus anticoagulant), Morbid obesity, DLP, Hypothyroidism, who presented to the hospital at the direction of her primary care provider after she was noted to have an elevated heart rate before getting a breast biopsy. Patient reported that she has had an abnormal mammogram 2 weeks ago and was scheduled to receive a biopsy with Dr. Nelson today. For evaluation. Patient sent 7. Elevated heart rate center PCP, who then sent her to the ER. In the emergency room, patient was found to have an elevated heart rate and EKG had revealed atrial fibrillation with RVR. Hospitalist services called for further evaluation. Currently, patient had reported palpitations. Upon arrival, she denies any chest pain, nausea, vomiting, pain, constipation, diarrhea, discomfort with urination, any recent fevers or chills. Patient does report shortness breath with exertion. She does report leg swelling that appears to be unchanged for several months. Patient reports that she does experience orthopnea and she sleeps in a reclining chair for the last 1 year. Patient reports that when she uses a bed, she sleeps on her side. Patient had stopped taking Xarelto 5 days prior in anticipation of her biopsy, however was instructed to resume taking it today since the biopsy has been counseled. HOSPITAL COURSE: Palpitations / Elevated HR - likely 2/2 A. fib with RVR - Patient presented to the hospital after she was noted to have an elevated heart rate and palpitation - Currently, patient's heart rate is well-controlled - EKG reveals atrial fibrillation with RVR on arrival - Patient reports that she has had a recent reduction in her bisoprolol dose - CTA 08/16: 1. The study is limited due to motion artifact. 2. There is no evidence for central pulmonary embolism. Evaluation of segmental pulmonary arteries is limited due to motion artifact. 3. Reflux of contrast is noted in the hepatic veins suggesting right heart strain/failure. 4. Examination reveals significant interval worsening of extensive left axillary lymphadenopathy since the previous study which is concerning for metastatic lymphadenopathy versus lymphoma. Biopsy or PET scan should be considered for further evaluation. 5. No acute infiltrate or consolidation is seen. - c/w bisoprolol at 2.5 mg daily; - c/w full anticoagulation with Xarelto - c/w Telemetry monitoring - Discuss case with cardiology; will have outpatient follow up within the next 7 days Ischemic changes on EKG - Patient denies any chest pain, shortness of breath, nausea or vomiting - Discuss findings with cardiology; similar to prior EKGs in their office - Troponin x 2 negative - c/w Telemetry monitoring LE edema / Vascular congestion - Patient reports shortness of breath with exertion and orthopnea - Physical reveals feels lower extremity edema with chronic venous stasis changes - Patient reports that she is compliant with her torsemide - CXR 08/16: There is mild diffuse interstitial edema. No acute infiltrate or consolidation is seen. - Patient has not required any supplement oxygen - c/w strict ins/outs, daily weights, fluid restriction - Will have outpatient follow up of ECHO with Cardiology - Will resume home Torsemide HTN - BP elevated in ER - Patient reports that she had stopped taking bisoprolol 1 year ago - c/w Bisoprolol at reduced dose of 2.5 - Will DC Amlodipine on discharge Abnormal mammogram with suspicion of malignancy - Patient reported that she had a mammogram completed approximately 2 weeks ago that was noted to be abnormal; patient was scheduled to receive a biopsy today - Imaging above has suggested possibility of left axillary lymphadenopathy; suggesting possibility of metastatic malignancy - Imaging results were conveyed to patient; she has verbalized understanding of the results - Patient is scheduled for her next biopsy in 08/30; has been advised to stop Xarelto 5 days prior be her breast surgeon Hx of PE (2/2 Factor V Leiden / Lupus anticoagulant) - c/w anticoagulation with Xarelto DLP - Currently not on medications Hypothyroidism - c/w Levothyroxine Morbid obesity - BMI 47.3 - Complicating medical care DVT prophylaxis - Will c/w full anticoagulation with Xarelto DISCHARGE MEDICATIONS: Please see below. ALLERGIES: Please see below. PHYSICAL EXAMINATION ON DISCHARGE: Vitals (See below) General: Lying in bed, appears comfortable, AAOx3 HEENT: NC, AT CVS: IrIr, +S1S2 Lungs: air entry is fair bilaterally without any evidence of rhonchi, wheezing or rales Abdomen: Soft, ND, NT Extremities: Chronic venous stasis changes, 1+ pitting edema bilaterally, - Calf tenderness LABORATORY DATA: Please see below. ACTIVITY: [As tolerated]. DISCHARGE PLAN: Follow-up with primary care provider, and cardiology within the next 7 days Remain compliant with treatment plan and medications Return to the ER if you experience any problems DISPOSITION: Home with services DISCHARGE CONDITION: [Stable]. TIME SPENT ON DISCHARGE: 25 minutes Vital Signs/I&Os Vital Signs Date Time Temp Pulse Resp B/P (MAP) Pulse Ox O2 Delivery O2 Flow Rate FiO2 08/17/20 07:48 85 124/70 08/17/20 07:41 98.0 16 96 Room Air I&O- Last 24 Hours up to 6 AM 08/17/20 05:59 Intake Total 240 ml Output Total 3200 ml Balance -2960 ml Laboratory Data Labs 24H Laboratory Tests 2 08/16/20 12:36: Immature Granulocyte % (Auto) 0.4, Neutrophils (%) (Auto) 66.0, Lymphocytes (%) (Auto) 22.4L, Monocytes (%) (Auto) 9.1H, Eosinophils (%) (Auto) 1.8, Basophils (%) (Auto) 0.3, Neutrophils # (Auto) 5.1, Lymphocytes # (Auto) 1.7, Monocytes # (Auto) 0.7, Eosinophils # (Auto) 0.1, Basophils # (Auto) 0.0, Nucleated Red Blood Cells % (auto) 0.0, Prothrombin Time 13.6, Prothromb Time International Ratio 1.02, Activated Partial Thromboplast Time 25.6, D-Dimer, Quantitative > 4000H, Anion Gap 6L, Glomerular Filtration Rate 42.1, Calcium Level 9.5, Total Bilirubin 0.5, Direct Bilirubin < 0.1, Aspartate Amino Transf (AST/SGOT) 20, Alanine Aminotransferase (ALT/SGPT) 9L, Alkaline Phosphatase 126H, Total Creatine Kinase 90, Creatine Kinase MB < 1.0, Creatine Kinase MB Relative Index 1.11, Troponin I < 0.02, Total Protein 8.4H, Albumin 3.3, Albumin/Globulin Ratio 0.6L, Lipase 145 08/16/20 12:37: POC Glucose (Misc Panel) 106H, POC Sodium (Misc Panel) 141, POC Potassium (Misc Panel) 4.0, POC Chloride (Misc Panel) 101, POC Total CO2 (Misc Panel) 31.0H, POC Blood Urea Nitrogen (Misc Panel 27H, POC Ionized Calcium (Misc Panel) 4.7, POC Creatinine (Misc Panel) 1.3, POC Hematocrit (Misc Panel) 38.0 08/16/20 18:09: Total Creatine Kinase 52, Creatine Kinase MB < 1.0, Creatine Kinase MB Relative Index 1.92, Troponin I < 0.02 08/17/20 04:51: Immature Granulocyte % (Auto) 0.3, Neutrophils (%) (Auto) 63.0, Lymphocytes (%) (Auto) 22.2L, Monocytes (%) (Auto) 11.3H, Eosinophils (%) (Auto) 2.9, Basophils (%) (Auto) 0.3, Neutrophils # (Auto) 3.8, Lymphocytes # (Auto) 1.3L, Monocytes # (Auto) 0.7, Eosinophils # (Auto) 0.2, Basophils # (Auto) 0.0, Nucleated Red Blood Cells % (auto) 0.0, Anion Gap 4L, Glomerular Filtration Rate 46.7, Calcium Level 8.9, Magnesium Level 2.3 CBC/BMP Laboratory Tests 08/16/20 12:36 08/17/20 04:51 Discharge Medications Scheduled Bisoprolol Fumarate (Bisoprolol Fumarate) 5 Mg Tablet, 2.5 MG PO DAILY Levothyroxine Sodium (Levothyroxine Sodium) 25 Mcg Tablet, 25 MCG PO QAM, (Reported) Potassium Chloride (Potassium Chloride) 20 Meq Tablet.er, 20 MEQ PO DAILY, (Reported) Rivaroxaban (Xarelto) 15 Mg Tablet, 15 MG PO DAILY, (Reported) HELD FOR 5 DAYS PRIOR TO PROCEDURE 08/16/20 Torsemide (Torsemide) 20 Mg Tablet, 40 MG PO QAM, (Reported) Torsemide (Torsemide) 20 Mg Tablet, 20 MG PO QPM, (Reported) Scheduled PRN Nystatin (Nystatin) 15 Gm Cream..g., 1 APLCT TOP TID PRN for RASH/ITCHING, (Reported) APPLY UNDER BREASTS/GROIN Allergies Coded Allergies: Penicillins (Verified Allergy, Unknown, 08/12/20) and penicillin cross reactors ERNESTINA PHILLIPS MD Aug 17, 2020 09:12
--- NOTE | 2020-08-17 19:07 | ECGEPIP ---
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
== END 2020-08-17 10:15 | disposition home or self-care (01) ==
LOC: M ED 11:56 → M ED INP 16:23 → ENRESERV 17:03 → M PCU 17:47
PROVIDERS: ADMIT Internal Medicine; ATTEND Internal Medicine
DX: I48.0 Paroxysmal atrial fibrillation (principal); R94.31 Abnormal electrocardiogram [ECG] [EKG]; R22.43 Localized swelling, mass and lump, lower limb, bilateral; I10 Essential (primary) hypertension; G95.19 Other vascular myelopathies; Z86.711 Personal history of pulmonary embolism; E78.5 Hyperlipidemia, unspecified; E03.9 Hypothyroidism, unspecified; E66.01 Morbid (severe) obesity due to excess calories; Z79.01 Long term (current) use of anticoagulants; R92.8 Other abnormal and inconclusive findings on diagnostic imaging of breast; Z79.899 Other long term (current) drug therapy
CPT/HCPCS: 36415; 71045; 71275; 80047; 80048; 80076; 82550; 82553; 83690; 83735; 84484; 85025; 85379; 85610; 85730; 90682; 93005; 93041; 94760; 96374; 99285; G0008; G0378; J1940; Q9967

== ENCOUNTER → 2020-08-16 | Outpatient (CLI) | payer MEDICARE ==
[~2020-08-16] MED LIST changes: +BISO5TAB14 PO; +NYST10CR TOP; +POTA1TAB14 PO; +XARE15TA PO
== END ==
LOC: M WHCPRO 09:55
PROVIDERS: ATTEND Surgery
DX: R59.9 Enlarged lymph nodes, unspecified (principal); R91.8 Other nonspecific abnormal finding of lung field

== ENCOUNTER → 2020-08-22 | Outpatient (REF) | payer MEDICARE ==
[~2020-08-22] MED LIST changes: +BISO5TAB14 PO; +NYST10CR TOP; +POTA1TAB14 PO; +XARE15TA PO
[2020-08-22 15:58] LABS: CALCIUM LEVEL 9.1 MG/DL (8.8-10.2); CREATININE FOR GFR 1.29 MG/DL (0.55-1.30); GLOMERULAR FILTRATION RATE 42.1 (>32); POTASSIUM SERUM 3.7 MEQ/L (3.5-5.1)
== END ==
LOC: M SFHCPLAZ 11:24
PROVIDERS: ATTEND Nurse Practitioner Family
DX: I10 Essential (primary) hypertension (principal)

== ENCOUNTER → 2020-08-30 | Outpatient (CLI) | payer MEDICARE ==
[~2020-08-30] MED LIST changes: +DEXA4TA PO; +LEVO250T12 PO; +[UNRECOGNIZED DRUG - CODE] PO
[2020-08-30 08:05] VITALS: BP 126/78
--- NOTE | 2020-08-30 16:09 | REP ---
INDICATION: R92.8 ABNORMAL MAMMOGRAM RT BREAST,US GUIDED BX. COMPARISON: 07/17/2020. TECHNIQUE: Real-time sonographic evaluation of right breast performed. FINDINGS: Ultrasound guidance was provided for Dr. Nelson who performed ultrasound-guided biopsy of a right breast lesion at 12 o'clock 5 cm from the nipple. IMPRESSION: Biopsy needle is seen at the location of the lesion. RECOMMENDATION: Clinical follow-up. <Electronically signed by Kike Menard > 08/30/20 [id number]
--- NOTE | 2020-08-30 16:13 | REP ---
INDICATION: R59.9 LT PALPABLE LYMPH NODE,US GUIDED BX. COMPARISON: 07/17/2020. TECHNIQUE: Real-time sonographic evaluation and ultrasound guidance provided in the left axillary region. FINDINGS: There is a large mass in the left axilla. IMPRESSION: Ultrasound guidance is provided for Dr. Nelson performed ultrasound-guided biopsy of the large left axillary mass. RECOMMENDATION: Clinical follow-up. <Electronically signed by Kike Menard > 08/30/20 [id number]
--- NOTE | 2020-08-30 16:15 | REP ---
INDICATION: R92.8 8 ABNORMAL MAMMOGRAM RT BREAST,POST BIOPSY. COMPARISON: 07/17/2020. TECHNIQUE: MLO and CC views right breast performed. FINDINGS: Following ultrasound-guided biopsy of the ill-defined nodule at the 12 o'clock position of the right breast, a biopsy clip is seen at the site of the nodule when compared to the prior mammogram. IMPRESSION: Good clip placement. Following ultrasound-guided biopsy of the previously identified nodule at 12 o'clock right breast, the clip placed under ultrasound guidance is seen at the location of the mammographic abnormality. RECOMMENDATION: Successful ultrasound-guided biopsy. <Electronically signed by Kike Menard > 08/30/20 [id number]
--- NOTE | 2020-09-01 22:36 | ROOPDOC ---
[facility] Report Of Operation Report of Operation DATE OF PROCEDURE: 08/30/20 DIAGNOSIS: Left palpable axillary lymphadenopathy, left breast skin edema, right breast suspicious mass PROCEDURE: Ultrasound guided left palpable axillary lymph node biopsy, left breast skin punch biopsy, ultrasound guided right breast mass biopsy SURGEON: Swati Taveras BLOOD LOSS: 10 ml COMPLICATIONS: none Lidocaine 1% LOT [id number] Expiration 06/2023 Sodium Bicarbonate 8.4% LOT [id number] Expiration 04/2021 LEFT LYMPH NODE BIOPSY: Hydromark clip LOT [id number] Expiration 03/2023 REF SHAPE 4 Bx device: BARD [id number] x10 cm LOT [id number] Expiration 03/2023 LEFT BREAST SKIN PUNCH BIOPSY TWO 6 MM PUNCH BIOPSY DEVICES, NEW FOR EACH BIOPSY RIGHT BREAST BIOPSY Hydromark clip LOT [id number] Expiration 06/2023 REF SHAPE 3 Bx device: BARD [id number] x10 cm LOT [id number] Expiration 03/2023 Informed consent was obtained. The most common risk and possible complications including bleeding, hematoma, bruising, infection, injury to surrounding structures were explained to the patient and the patient expressed underst anding. Patient held Xeralto for 4 days prior to procedure. Patient was placed on the bed in the semi-upright position due to trouble of breathing while supine. Appropriate time out was done stating patients name, date of , and the procedure to be performed. Procedure was started with ultrasound guided biopsy of large left palpable lymph node. The left breast and axilla were prepped and draped in the usual fashion. The ultrasound was used to confirm the location of the enlarged lymph node. Plain Lidocaine 1% and 8.4% sodium bicarbonate 10:1 mix was used to anesthetize the skin, the biopsy site and tissues along the anticipated biopsy tract. Small skin incision was made with blade number 11. BARD Marquee 14G cannula with introducer ([id number]) was inserted through the incision and advanced under the ultrasound guidance to position immediately adjacent to the lesion. Next, the introducer was removed and BARD Marquee 14G biopsy device was places in the cannula. Pre-biopsy imaging, and post-biopsy imaging were captured. Five good core biopsies were taken at various levels of the lesion. Specimen was placed in formaldehyde, labeled with appropriate biopsy site and patients name, and sent to pathology for evaluation. Next, the biopsy device was withdrawn and a clip introducer was inserted into the biopsy site via the cannula. The 4 Hydromark clip was deployed under sonographic guidance. Post-clip placement image was captured. Manual pressure over the biopsy cavity and tract was held after the clip i ntroducer was withdrawn. There was some small ooze despite extended pressure held to the site. Silver nitrate stick was used to coagulate the area. Steri Strip was placed over the incision site. Patient tolerated well this part of procedure. Next our attention was turned toward the left breast with severe edema. Two sites were chosen for biopsy at the site of edematous changes and redness. Punch biopsy procedure was started with more lateral left breast site. Plain Lidocaine 1% and 8.4% sodium bicarbonate 10:1 mix was used to anesthetize the skin at the site of planned biopsy. 6 mm punch biopsy device was used to collect the specimen. Manual pressure over the biopsy site. There was some small ooze despite extended pressure held to the site. Silver nitrate stick was used to coagulate the area. Single 4-0 chromic stitch was placed to approximate skin edges together. Steri Strip was placed over the incision site. Patient tolerated well this part of procedure. Specimen was placed in formaldehyde, labeled with appropriate biopsy site and patients name, and sent to pathology for evaluation. The left nipple skin punch biopsy was done next. Plain Lidocaine 1% and 8.4% sodium bicarbonate 10:1 mix was used to anesthetize the skin at the site of planned biopsy. 6 mm punch biopsy device was used to collect the specimen. Manual pressure over the biopsy site. There was some small ooze despite extended pressure held to the site. Silver nitrate stick was used to coagulate the area. Single 4-0 chromic stitch was placed to approximate skin edges together. Steri Strip was placed over the incision site. Patient tolerated well this part of procedure. Specimen was placed in formaldehyde, labeled with appropriate biopsy site and patients name, and sent to pathology for evaluation. Next, our attention was turned toward the right breast. Suspicious lesion located at 12:00 5CFN was identified on sonography. Plain Lidocaine 1% and 8.4% sodium bicarbonate 10:1 mix was used to anesthetize the skin, the biopsy site and tissues along the anticipated biopsy tract. Small skin incision was made with blade number 11. BARD Marquee 14G cannula with introducer ([id number]) was inserted through the incision and advanced under the ultrasound guidance to position immediately adjacent to the lesion. Next, the introducer was removed and BARD Marquee 14G biopsy device was places in the cannula. Pre-biopsy imaging, and post-biopsy imaging were captured. Five good core biopsies were taken at various levels of the lesion. Specimen was placed in formaldehyde, labeled with appropriate biopsy site and patients name, and sent to pathology for evaluation. Next, the biopsy device was withdrawn and a clip introducer was inserted into the biopsy site via the cannula. The 3 Hydromark clip was deployed under sonographic guidance. Post-clip placement image was captured. Manual pressure over the biopsy cavity and tract was held after the clip introducer was withdrawn. No bleeding was noted. Post-biopsy mammogram of the right breast was obtained and showed clip in expected position. Postprocedural dressing was placed. Patient tolerated procedure well. Discharge instructions were discussed with the patient and the patient expressed understanding. SWATI TAVERAS DO Sep 01, 2020 22:35
== END ==
LOC: M WHCPRO 12:53
PROVIDERS: ATTEND Surgery
DX: C50.912 Malignant neoplasm of unspecified site of left female breast (principal); C77.9 Secondary and unspecified malignant neoplasm of lymph node, unspecified; N60.21 Fibroadenosis of right breast; R59.9 Enlarged lymph nodes, unspecified; R92.8 Other abnormal and inconclusive findings on diagnostic imaging of breast

== ENCOUNTER → 2020-09-04 | Outpatient (REF) | payer MEDICARE ==
[~2020-09-04] MED LIST changes: -DEXA4TA PO; -LEVO250T12 PO; -[UNRECOGNIZED DRUG - CODE] PO
== END ==
LOC: M LAB REF 18:04
PROVIDERS: ATTEND Surgery
DX: N64.59 Other signs and symptoms in breast (principal)

== ENCOUNTER → 2020-09-06 | Outpatient (CLI) | payer MEDICARE ==
[2020-09-06 15:53] LABS: BASO % 0.4 % (0.0-1.0); EOS # 0.2 10^3/uL (0.0-0.5); EOS % 3.7 % (0.0-3.0); HEMATOCRIT 34.6 % (36.0-47.0); HEMOGLOBIN 10.6 g/dl (12.0-15.5); LYMPH # 1.3 10^3/uL (1.5-5.0); LYMPH % 25.3 % (24.0-44.0); MEAN CORPUSCULAR HEMOGLOBIN 28.3 pg (27.0-33.0); MEAN CORPUSCULAR HGB CONC 30.6 g/dl (32.0-36.5); MEAN CORPUSCULAR VOLUME 92.3 fl (80.0-96.0); MONO # 0.6 10^3/uL (0.0-0.8); PLATELET COUNT, AUTOMATED 217 10^3/uL (150-450); RED BLOOD COUNT 3.75 10^6/uL (4.00-5.40); WHITE BLOOD COUNT 5.2 10^3/uL (4.0-10.0)
[2020-09-06 21:35] LABS: ALBUMIN 3.2 GM/DL (3.2-5.2); BILIRUBIN,TOTAL 0.5 MG/DL (0.2-1.0); CREATININE FOR GFR 1.25 MG/DL (0.55-1.30); GLOMERULAR FILTRATION RATE 43.7 (>32); POTASSIUM SERUM 4.7 MEQ/L (3.5-5.1); TOTAL PROTEIN 7.9 GM/DL (6.4-8.2)
== END ==
LOC: M PLALAB 12:29
PROVIDERS: ATTEND Surgery
DX: B99.9 Unspecified infectious disease (principal)

== ENCOUNTER → 2020-09-20 | Outpatient (CLI) | payer MEDICARE ==
[~2020-09-20] MED LIST changes: +DEXA4TA PO; +LEVO250T12 PO; +MORP1SOL4 PO; +[UNRECOGNIZED DRUG - CODE] PO
--- NOTE | 2020-09-20 10:27 | RADONC.CN ---
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 She is seen for consideration of palliative RT. Diagnosis/Treatment History Oncologic History November 2019 noted swelling of left breast and discomfort 11/19/19 CT chest for SOB, hx PE, with notable left axillary adenopathy 07/17/20 Mammogram/US concerning for left breast cancer 08/16/20 CT chest with large left axillary nodes levels I and II, dermal thickening left breast without mass 08/30/20 Biopsy showing IBC ER-/MS low positive HER2- Grade 3 Interval History Here with daughter, has significant orthopnea, sleeps in recliner. Not active at home, essentially sedentary. Has pain in the left breast, and significant swelli ng which is uncomfortable. Past Medical History: A fib PE CVD HTN HPL Lymphedema Obesity Breast History: OCP for 5 years Menses @ 16 Postmenopausal @ 61 Past Surgical History: Cataracts Cholecystectomy C section Family History: No breast cancer history in family Social History: Never smoker Never drinker Allergies / Meds Allergies: Coded Allergies: Penicillins (Verified Allergy, Unknown, 08/12/20) and penicillin cross reactors Home Meds Active Scripts Dexamethasone (Dexamethasone) 4 Mg Tablet, 8 MG PO BID for 2 Days, #72 TAB TAKE TWO TABS BY MOUTH TWICE A DAY FOR THREE DAYS, START THE DAY BEFORE CHEMOTHERAPY Prov:LIZA DILL MD 09/18/20 Bisoprolol Fumarate (Bisoprolol Fumarate) 5 Mg Tablet, 2.5 MG PO DAILY for 30 Days, #15 TAB Prov:ERNESTINA PHILLIPS MD 08/17/20 Reported Medications Erythromycin Base (Erythromycin) 250 Mg Tablet, 1 TAB PO QID for 10 Days, #40 TAB 09/18/20 Levofloxacin (Levofloxacin) 250 Mg Tablet, 2 TAB PO DAILY for 10 Days, #7 TAB 09/18/20 Rivaroxaban (Xarelto) 15 Mg Tablet, 15 MG PO DAILY HELD FOR 5 DAYS PRIOR TO PROCEDURE 08/16/20 08/16/20 Nystatin (Nystatin) 15 Gm Cream..g., 1 APLCT TOP TID PRN for RASH/ITCHING APPLY UNDER BREASTS/GROIN 08/16/20 Potassium Chloride (Potassium Chloride) 20 Meq Tablet.er, 20 MEQ PO DAILY, TAB 08/16/20 Torsemide (Torsemide) 20 Mg Tablet, 20 MG PO QPM, TAB 08/16/20 Levothyroxine Sodium (LEVOTHYROXINE SODIUM) 25 Mcg Tablet, 25 MCG PO QAM 11/19/19 Torsemide (Torsemide) 20 Mg Tablet, 40 MG PO QAM 11/19/19 Review of Systems Constitutional: Reports: Weakness, Fatigue; Denies: Chills, Fever, Malaise Eyes: Denies: Pain, Vision change HEENT: Denies: Head Aches, Dysphagia, Sore Throat Skin: Reports: Rash (Left breast redness, bruising), Lesions; Denies: Bruising Pulmonary: Reports: Dyspnea, Cough; Denies: Pleuritic Chest Pain Cardiovascular: Reports: Orthopnea; Denies: Chest Pain, Palpitations, Paroxysmal Noc. Dyspnea, Edema Breast: Reports: Breast Skin Changes (Left breast swelling), Breast Pain or Tenderness Gastrointestinal: Denies: Nausea, Vomiting, Abdominal Pain, Diarrhea Genitourinary: Denies: Dysuria, Frequency, Incontinence Hematologic: Reports: Bruising Musculoskeletal: Denies: Neck pain, Back pain Neurological: Denies: Weakness, Numbness, Incoordination Psych: Reports: Mood Normal; Denies: Memory Issues, Thoughts of Self Harm Vital Signs Ht 64" Wt 269lb BMI 46 T 97.3 P 72 RR 18 BP 151/75 O2 92% Pain 0 Fatigue 1 General Exam: Positive: Alert, Cooperative, No Acute Distress Eye Exam: Positive: PERRLA, EOMI ENT EXAM: Positive: Mucous membr. moist/pink, Pharynx Normal Neck Exam: Negative: Thyromegaly, Lymphadenopathy Chest Exam: Positive: Wheezing; Negative: Rales, Rhonchi Heart Exam: Positive: Rate Normal, Regular Rhythm Breast Exam: Positive: Symmetric Bilaterally (Breasts pendulous, left brast is massively edematous extending to the left axilla. LUE without obvious asymmetrical swelling or stasis changes), Lumps or Masses (Left axillary adenopathy), Skin Changes (Left breast skin with peau d'orange and erythema, significant skin induration, skin is hot to touch. Breast is tender); Negative: Nipple Retraction, Nipple Discharge Abdomen Exam: Positive: Soft; Negative: Tenderness, Mass Extremity Exam: Positive: Edema (Lymphedema BL LE); Negative: Tenderness Neuro Exam: Positive: Normal Gait, Normal Speech, Cranial Nerves 3-12 NL Psych Exam: Positive: Mental status NL, Mood NL, Memory Intact Diagnostic and Laboratory Diagnostic Review Radiologic images, relevant labs and pathology reports were personally reviewed and discussed with Ms. Valdes. Assessment and Plan Impression Ms. 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 She is seen for consideration of palliative RT. Stage [id number] ER-/ MS low positive HER2- Grade 3 stage IIIC left breast IBC Performance Status ECOG 2 Plan We had an extensive discussion with Ms. Valdes regarding the diagnosis at hand and available therapeutic options. We previously reviewed her case in tumor board. Dr. Nelson was not optimistic about mastectomy even after appropriate downstaging. Dr. Dill intends to offer TC chemotherapy. She has a PET ordered which has not been completed. I discussed that the intent of treatment in this case is palliative, with her poor PS, inability to receive anthracycline-based chemotherapy and a habitus which will make radiation tenuous to deliver (her left breast is massive as is the left axillary patricia burden). Despite this I think she would benefit from RT to reduce the burden of disease on the left. I think she would benefit from a hypofractionated course either 6.5 Gy once weekly for 5-8 cycles (as per a [place] experience Adriana et al 2006), or a split course approach with 20-25 Gy in 5 fractions a 2 week break for response assessment, then another 20-25 Gy in 5 fractions if toxicity is manageable and the breast is feeling better. She is in agreement to proceed. Much will be ascertained at the time of planning regarding what is achievable and safe to deliver. We discussed the logistics of receiving radiation therapy in detail including the need for a 1-time planning session. I would like for this to occur in advance of the start of chemotherapy. I would prefer to give some radiation prior to the start of chemotherapy (either a few weeks of weekly fractions, or the first cycle of a split course) prior to chemotherapy starting for fear of precipitating too much much cutaneous toxicity. We reviewed that we expect skin reaction, especially with the axillary patricia burden she has and the expected inhomogeneity of any plan to address this large target volume. I also expect late fibrosis. I also broached referral to palliative care with the patient and her daughter, Tatyana osorio is not ready for this now, but her daughter was receptive, and I gave her information about the [facility]. I think she would benefit greatly from early palliative involvement and so will broach this again as we move along. After discussing the risks, benefits and alternatives to radiation therapy, Ms. Valdes was amenable to pursuing radiotherapy. All questions were answered to the patient's satisfaction. We instructed the patient that if there were any questions,concerns or changes in clinical status in the interim to contact us. Recommendations Palliative RT as discussed above Simulation in the next week PET-CT pending Reconsider palliative referral at later date (per patient's wish) Would prefer to start with some RT prior to chemotherapy and then continue with concurrent if she is tolerating treatment DEN MCCULLOUGH MD Sep 20, 2020 10:27
--- NOTE | 2020-09-22 14:08 | RADENCPD ---
Date/Time of Encounter Date of Encounter: Sep 22, 2020 Time of Encounter: 14:01 Encounter Spoke to Lisa, patient's daughter. She states her mother has opted against all cancer-directed therapy, including chemotherapy, radiation (even once-weekly radiation), and additional staging studies (PET-CT scheduled on 09/26/20). Reason for this is aversion to any treatment side effects and multiple medical appointments this would entail. I explained that palliative treatment could be very helpful to reduce her pain and improve QOL, however she is resolute. Her pain is in her legs, low back, swollen left breast and LUE. She requests pain medication for this, I offered liquid morphine as she is unable to swallow large pills. Rx sent to [facility]. I also broached palliative care referral, first for symptom control as she has opted to comfort measures and ultimately for hospice referral as her prognosis without treatment is <6 months based on her age, comorbidities and extensive burden of malignancy. Lisa stated she would try and convince her mom to follow with palliative care. I suggested that focus on symptom management is the first concern in their (PC's) approach and end-of-life care is a topic that can be discussed at a later date. I placed the referral. DEN MCCULLOUGH MD Sep 22, 2020 14:08
== END ==
LOC: M ONCR 08:23
PROVIDERS: ATTEND General Practice
DX: C50.919 Malignant neoplasm of unspecified site of unspecified female breast (principal)

== ENCOUNTER → 2020-09-25 | Outpatient (REF) | payer MEDICARE | LOC: M SFHCPLAZ 16:50 | PROVIDERS: ATTEND Physician Assistant | DX: B02.9 Zoster without complications (principal) ==